=== PATIENT | female | born 1950 | race Caucasian/White ===

== ENCOUNTER 2019-05-07 07:43 | Inpatient (IN) | payer MEDICARE, MEDICAID ==
[~2019-05-07] VITALS: Ht 162.6 cm; Wt 68.5 kg
[2019-05-07] VITALS (41 sets, daily range): BP systolic 79–122; BP diastolic 55–82
[2019-05-07] MEDS ORDERED: ALBUTEROL/IPRATROPIUM 3 ML NEB ONE (07:46)
[2019-05-07] MEDS ORDERED: NS(*) 0.9% 1000 ML BAG 1,000 ML IV ONE ×3 (07:49→11:35)
[2019-05-07] MEDS ORDERED: MAGNESIUM SUL* 2 GM/50 ML IVPB 50 ML ONE (07:50)
[2019-05-07] MEDS ORDERED: ALBUTEROL/IPRATROPIUM 3 ML NEB NEB ONE (07:50)
[2019-05-07] MEDS ORDERED: MAGNESIUM SUL* 2 GM/50 ML IVPB 50 ML IVPB ONE (07:50)
[2019-05-07] MEDS ORDERED: ALBUTEROL/IPRATROPIUM 3 ML NEB NEB SCH (07:50)
[2019-05-07] MEDS ORDERED: KETAMINE HCL 500 MG/5 ML VIAL IVP ONE ×2 (07:54→08:01)
[2019-05-07 08:01] LABS: PLATELET COUNT, AUTOMATED 438 K/uL (150-450)
[2019-05-07] MEDS ORDERED: SUCCINYLCHOL CHL 200MG/10ML VL IVP ONE (08:02)
[2019-05-07 08:05] LABS: INR 0.93
--- NOTE | 2019-05-07 08:11 | ER Report ---
History and Physical Time Seen By MD: 07:45 HPI/ROS CHIEF COMPLAINT: COPD exacerbation, altered mental status HISTORY OF PRESENT ILLNESS: Patient is a 68-year-old female here with complaints of increased shortness of breath, history of COPD. EMS reports the patient was initially 66% on room air at time of initial evaluation. Patient was placed on BiPAP with minimal response. Patient was given DuoNeb through the BiPAP at time of arrival. Patient was given Solu-Medrol by EMS crew. REVIEW OF SYSTEMS: Unable to obtain due to patient's mental status Constitutional Vital Sign - Last 24 Hours 05/07/19 05/07/19 05/07/19 05/07/19 07:55 08:24 08:24 08:24 Temp 97.6 Pulse 93 Resp 16 Pulse Ox 97 O2 Delivery Mechanical Ventilator FiO2 100.0 100.0 05/07/19 08:31 Pulse 85 Resp 16 Physical Exam General Appearance: Diffuse retractions, altered mental status, minimally responsive Eyes: Pupils equal and round no pallor or injection. ENT, Mouth: Mucous membranes are moist. Respiratory: Diffuse wheezing in all quadrants, diminished breath sounds Cardiovascular: Regular rate and rhythm. Gastrointestinal: Abdomen is soft and non tender, no masses, bowel sounds normal. Neurological: Confused, minimally responsive, moving all extremities Skin: Warm and dry, no rashes. Musculoskeletal: Neck is supple non tender. Extremities are nontender, nonswollen and have full range of motion. DIFFERENTIAL DIAGNOSIS: After history and physical exam differential diagnosis was considered for shortness of breath including but not limited to pulmonary infectious process, COPD, asthma, pulmonary embolus and congestive heart f ailure. Medical Decision Making Data Points Result Diagram: 05/07/19 0745 05/07/19 0745 Laboratory Hematology Test 05/07/19 07:45 05/07/19 08:23 Red Blood Count 5.21 M/uL (4.17-5.56) Mean Corpuscular Volume 93.4 fL (80.0-96.0) Mean Corpuscular Hemoglobin 30.2 pg (26.0-33.0) Mean Corpuscular Hemoglobin Concent 32.3 g/dL (32.0-36.0) Red Cell Distribution Width 14.6 % (11.5-14.5) Mean Platelet Volume 8.2 fL (7.2-11.1) Neutrophils (%) (Auto) 39.8 % (39.4-72.5) Lymphocytes (%) (Auto) 43.9 % (17.6-49.6) Monocytes (%) (Auto) 3.8 % (4.1-12.4) Eosinophils (%) (Auto) 12.2 % (0.4-6.7) Basophils (%) (Auto) 0.3 % (0.3-1.4) Nucleated RBC Relative Count (auto) 0.0 /100WBC Neutrophils # (Auto) 7.8 K/uL (2.0-7.4) Lymphocytes # (Auto) 8.6 K/uL (1.3-3.6) Monocytes # (Auto) 0.8 K/uL (0.3-1.0) Eosinophils # (Auto) 2.4 K/uL (0.0-0.5) Basophils # (Auto) 0.1 K/uL (0.0-0.1) Nucleated RBC Absolute Count (auto) 0.01 K/uL Peripheral Blood Smear Yes Y/N Prothrombin Time 12.5 seconds (12.0-14.4) Prothromb Time International Ratio 0.93 Activated Partial Thromboplast Time 30 seconds (23-35) Sodium Level 143 mmol/L (137-145) Potassium Level 4.3 mmol/L (3.5-5.0) Chloride Level 106 mmol/L (98-107) Carbon Dioxide Level 24 mmol/L (22-31) Blood Urea Nitrogen 10 mg/dl (7-18) Creatinine 0.70 mg/dl (0.52-1.04) Glomerular Filtration Rate Calc > 60.0 Random Glucose 201 mg/dl (75-110) Calcium Level 9.2 mg/dl (8.4-10.2) Total Bilirubin 0.3 mg/dl (0.2-1.3) Aspartate Amino Transf (AST/SGOT) 20 U/L (0-35) Alanine Aminotransferase (ALT/SGPT) 21 U/L (0-56) Alkaline Phosphatase 132 U/L (0-126) B-Type Natriuretic Peptide 65 pg/ml (0-100) Total Protein 7.5 g/dl (6.3-8.2) Albumin 4.1 g/dl (3.5-5.0) Human Chorionic Gonadotropin, Qual Negative (NEGATIVE) Lactate 1.7 mmol/L (0.7-2.1) Chemistry Test 05/07/19 07:45 05/07/19 08:23 White Blood Count 19.6 k/uL (4.5-11.0) Red Blood Count 5.21 M/uL (4.17-5.56) Hemoglobin 15.7 g/dL (12.0-16.0) Hematocrit 48.6 % (34.0-47.0) Mean Corpuscular Volume 93.4 fL (80.0-96.0) Mean Corpuscular Hemoglobin 30.2 pg (26.0-33.0) Mean Corpuscular Hemoglobin Concent 32.3 g/dL (32.0-36.0) Red Cell Distribution Width 14.6 % (11.5-14.5) Platelet Count 438 K/uL (150-450) Mean Platelet Volume 8.2 fL (7.2-11.1) Neutrophils (%) (Auto) 39.8 % (39.4-72.5) Lymphocytes (%) (Auto) 43.9 % (17.6-49.6) Monocytes (%) (Auto) 3.8 % (4.1-12.4) Eosinophils (%) (Auto) 12.2 % (0.4-6.7) Basophils (%) (Auto) 0.3 % (0.3-1.4) Nucleated RBC Relative Count (auto) 0.0 /100WBC Neutrophils # (Auto) 7.8 K/uL (2.0-7.4) Lymphocytes # (Auto) 8.6 K/uL (1.3-3.6) Monocytes # (Auto) 0.8 K/uL (0.3-1.0) Eosinophils # (Auto) 2.4 K/uL (0.0-0.5) Basophils # (Auto) 0.1 K/uL (0.0-0.1) Nucleated RBC Absolute Count (auto) 0.01 K/uL Peripheral Blood Smear Yes Y/N Prothrombin Time 12.5 seconds (12.0-14.4) Prothromb Time International Ratio 0.93 Activated Partial Thromboplast Time 30 seconds (23-35) Glomerular Filtration Rate Calc > 60.0 Calcium Level 9.2 mg/dl (8.4-10.2) Total Bilirubin 0.3 mg/dl (0.2-1.3) Aspartate Amino Transf (AST/SGOT) 20 U/L (0-35) Alanine Aminotransferase (ALT/SGPT) 21 U/L (0-56) Alkaline Phosphatase 132 U/L (0-126) B-Type Natriuretic Peptide 65 pg/ml (0-100) Total Protein 7.5 g/dl (6.3-8.2) Albumin 4.1 g/dl (3.5-5.0) Human Chorionic Gonadotropin, Qual Negative (NEGATIVE) Lactate 1.7 mmol/L (0.7-2.1) Coagulation Test 05/07/19 07:45 Prothrombin Time 12.5 seconds Prothromb Time International Ratio 0.93 Activated Partial Thromboplast Time 30 seconds EKG/Imaging Imaging Please see radiology report for further details ED Course/Re-evaluation ED Course Patient is a 68-year-old female here with complaints of altered mental status, minimally responsive, history of COPD. Patient reportedly contacted EMS this morning for increasing dyspnea. Patient was given Solu-Medrol prior to arrival and was on BiPAP. Patient's mental status fail to improve in spite of doing nebs, BiPAP. Patient was given magnesium IV fluid bolus, continuous DuoNebs. Patient was intubated shortly after arrival after initial bolus of 75 mg of ketamine. Patient was then given 200 mg ketamine, 150 mg of succinylcholine and was intubated Using a 7.5 endotracheal tube with glydescope. Endotracheal tube was 24 at the teeth. I discussed the patient with Dr. Acosta who admitted the patient to the ICU for further treatment and care. Patient was given Levaquin after blood cultures and lactate were collected.. Procedure Endotracheal intubation: Patient was intubated due to respiratory failure, altered mental status in the setting of COPD. Patient was administered 200 mg of ketamine after initial bolus of 75 mg, 150 mg of succinylcholine. Patient was intubated using a 7.5 endotracheal tube, glydescope and the endotracheal tube was secured at 24 at the teeth. Bilateral breath sounds were auscultated post intubation, there was colorimetry change on capnography, patient was confirmed to have condensation in the tube. Chest x-ray confirmed tube placement. Patient was placed on post intubation sedation with ketamine infusion. Central access: Due to the patient's deteriorating condition, a central line was placed in the left IJ. Sterile procedure protocols were followed. Patient was prepped using chlorhexidine, sterile drape was placed. Usual central line protocols were followed, Seldinger technique was utilized to place a triple- lumen catheter in the left IJ. All ports flushed and had good return. Central l ine was secured using sutures. Patient tolerated the procedure well. Decision to Disposition Date: May 07, 2019 Decision to Disposition Time: 08:23 Depart Departure Latest Vital Signs Vital Signs Date Time Temp Pulse Resp B/P (MAP) Pulse Ox O2 Delivery O2 Flow Rate FiO2 05/07/19 08:31 85 16 05/07/19 08:24 100.0 05/07/19 08:24 97 Mechanical Ventilator 05/07/19 07:55 97.6 Impression: Primary Impression: Respiratory failure Additional Impression: COPD with acute exacerbation Condition: Critical Disposition: Admitted from ER Problem Qualifiers EDWARD AGUILLON DO May 07, 2019 08:11
--- NOTE | 2019-05-07 08:12 | RADIOLOGY IMAGING REPORT ---
FACILITY: [facility] PATIENT NAME: Cortney Camejo : 1950 MR: [id number] V: [id number] EXAM DATE: ORDERING PHYSICIAN: EDWARD AGUILLON TECHNOLOGIST: Location: [facility] Patient: Cortney Camejo : 1950 Visit/Account:[id number] Date of Sevice: 05/07/2019 CHEST SINGLE AP HISTORY: Respiratory distress COMPARISON: None FINDINGS: Cardiomediastinal contours: Normal Lungs and pleura: Mild blunting of the left costophrenic angle. No consolidation. No edema. No pne umothorax. Bones/soft tissues: Normal Other findings: None significant IMPRESSION: 1. Mild blunting of the left costophrenic angle which may represent small pleural effusion versus sc ar. Report Dictated By: Rafi Maria MD at 05/07/2019 8:06 AM Report E-Signed By: Rafi Maria MD at 05/07/2019 8:07 AM WSN:[email or web address]
[2019-05-07] MEDS ORDERED: ROCURONIUM BROM 10 MG/ML 10 ML IVP ONE (08:14)
[2019-05-07] MEDS ORDERED: KETAMINE HCL IV ONE (08:20)
[2019-05-07] MEDS ORDERED: LEVOFLOXACIN/D5W*500 MG/100 ML 100 ML IVPB ONE (08:20)
[2019-05-07] MEDS ORDERED: NS 0.9% IV ONE (08:20)
[2019-05-07] MEDS ORDERED: LEVOFLOXACIN/D5W 750 MG/150 ML 150 ML IVPB ONE (08:25)
[2019-05-07] MEDS ORDERED: PROPOFOL EMUL 10MG/ML 20 ML VL IV ONE (08:30)
--- NOTE | 2019-05-07 08:36 | RADIOLOGY IMAGING REPORT ---
FACILITY: [facility] PATIENT NAME: Cortney Camejo : 1950 MR: [id number] V: [id number] EXAM DATE: ORDERING PHYSICIAN: EDWARD AGUILLON TECHNOLOGIST: Location: [facility] Patient: Cortney Camejo : 1950 Visit/Account:[id number] Date of Sevice: 05/07/2019 CHEST SINGLE AP HISTORY: post intubation COMPARISON: 05/07/2019 FINDINGS: Cardiomediastinal contours: Normal Lungs and pleura: Stable mild blunting of the left costophrenic angle. Increasing left retrocardiac streaky opacity. No pneumothorax. No evidence of edema. Bones/soft tissues: Endotracheal tube tip at the aortic knob probably 3 cm above the brian. Nasogas tric tube courses into the stomach Other findings: None significant IMPRESSION: 1. New endotracheal tube and nasogastric tube in good position. 2. Stable mild blunting of the left costophrenic angle. Mild increasing streaky left retrocardiac o pacity which could be atelectasis, scar or developing infiltrate. Report Dictated By: Rafi Maria MD at 05/07/2019 8:28 AM Report E-Signed By: Rafi Maria MD at 05/07/2019 8:31 AM WSN:[email or web address]
[2019-05-07] MEDS ORDERED: KETAMINE HCL 200 MG/20 ML MDV IVP ONE (08:55)
[2019-05-07] MEDS ORDERED: NOREPINEPH BITAR 4 MG/4 ML AMP ONE (09:23)
[2019-05-07] MEDS ORDERED: INFLUENZA VIRUS VAC 0.5ML SYR IM ONLY ONE (09:45)
--- NOTE | 2019-05-07 09:59 | RADIOLOGY IMAGING REPORT ---
FACILITY: [facility] PATIENT NAME: Cortney Camejo : 1950 MR: [id number] V: [id number] EXAM DATE: ORDERING PHYSICIAN: EDWARD AGUILLON TECHNOLOGIST: Location: [facility] [place] Patient: Cortney Camejo : 1950 Visit/Account:[id number] Date of Sevice: 05/07/2019 CHEST SINGLE AP HISTORY: central line placement COMPARISON: 05/07/2019 FINDINGS: Cardiomediastinal contours: Normal Lungs and pleura: Stable mild blunting of the left costophrenic angle. Stable streaky left retrocard iac opacity. No pneumothorax. Bones/soft tissues: Normal Other findings: Endotracheal tube tip 3.5 cm above the brian. Nasogastric tube courses into the sto mach. New left internal jugular central line with its tip at the distal SVC. IMPRESSION: 1. New left internal jugular central line with its tip at the distal SVC. No postprocedural pneumot horax. 2. Endotracheal tube and nasogastric tube in good position. 3. Stable mild blunting of the left costophrenic angle. Stable streaky left retrocardiac airspace d isease. Report Dictated By: Rafi Maria MD at 05/07/2019 9:52 AM Report E-Signed By: Rafi Maria MD at 05/07/2019 9:53 AM WSN:[email or web address]
[2019-05-07] MEDS: DOXYCYCLINE HYCL 100 MG VIAL 100 MG in NS(*) 0.9% 250 ML BAG 250 ML IV SCH ×2 (10:13→22:08)
[2019-05-07] MEDS: NS(*) 0.9% 1000 ML BAG 1,000 ML IV PRN ×2 (10:13→21:24)
[2019-05-07] MEDS: MIDAZOLAM 50 MG/10 ML VIAL 100 MG in NS(*) 0.9% 100 ML BAG 80 ML IV PRN ×2 (10:27→21:23)
--- NOTE | 2019-05-07 11:16 | History & Physical ---
History of Present Illness Chief Complaint Shortness of breath History of Present Illness This patient presented to the emergency room in respiratory distress and was intubated on arrival. The daughter reports that she had been struggling with C OPD over the last several years, but refused to get treatment. The daughter does not live with her, and does not know the events of this morning. However, she does report that the patient had complained of increased shortness of breath yesterday. History Problems: (1) COPD (chronic obstructive pulmonary disease) Allergies: Coded Allergies: No Known Drug Allergies (Unverified , 05/07/19) Review of Systems All Systems Reviewed/Normal: Yes, Except as Noted Respiratory: Shortness of Breath Exam Vital Signs Vital Signs Date Time Temp Pulse Resp B/P (MAP) Pulse Ox O2 Delivery O2 Flow Rate FiO2 05/07/19 11:02 89 05/07/19 11:00 97.7 20 87/57 (67) 91 Mechanical Ventilator 50.0 Neuro: Other (Sedated.) Eyes: PERRLA Cardiovascular: Regular Rate and Rhythm Respiratory: Other (Bilateral breath sounds present.) GI: Abd Soft and Non-Tender Extremities: No Edema Integumentary: No Cyanosis Medical Decision Making Data Points Result Diagram: 05/07/19 0745 05/07/19 0745 Assessment and Plan Problems: (1) Acute respiratory failure Assessment & Plan: She did present with respiratory distress and was intubated on arrival. She is currently SIMV and is not overbreathing the ventilator. She is transitioning to Versed for sedation. A repeat blood gas has shown persist ent respiratory acidosis. We have increased her respiratory rate and will monitor this through the day. (2) COPD with acute exacerbation Status: Acute Assessment & Plan: She has been using albuterol at home, but has been reluctant to get any other treatment. Her chest x-ray does not show a definitive infiltrate. We are currently treating her with nebulizers, steroids, ceftriaxone, and azithromycin. (3) Hypotension Assessment & Plan: She is requiring a norepinephrine infusion. Lactate is normal. Venous Thromboembolism Antithrombotics Is Pt On Any Antithrombotics?: No Exam Sepsis Risk: No Definite Risk SANDY DIAZ DO May 07, 2019 11:16
[2019-05-07] MEDS: cefTRIAXone 2 GM VIAL IVP SCH (11:29)
[2019-05-07] MEDS ORDERED: FLUO-177 PO (11:42)
[2019-05-07] MEDS ORDERED: ALB18R INH (11:42)
[2019-05-07] MEDS ORDERED: TIO18R INH (11:42)
[2019-05-07] MEDS: methylPREDNIS SUCC 125 MG/2ML IVP SCH ×2 (11:47→17:43)
[2019-05-07] MEDS: NOREPINE BITAR* 4 MG/4 ML AMP 4 MG in D5W(*) 250 ML BAG 246 ML IV PRN (12:08)
[2019-05-07] MEDS: ALBUTEROL 2.5 MG/3 ML NEB NEB PRN (16:23)
[2019-05-07] MEDS: NS(*) 0.9% 500 ML BAG 500 ML IV PRN (16:34)
[2019-05-07] MEDS: MORPHINE 2 MG/ML SYR IVP PRN (18:27)
[2019-05-07] MEDS: ORAL SUCTION/CHLORHX/SWAB KIT MT SCH (21:00)
[2019-05-08] VITALS (85 sets, daily range): BP systolic 85–148; BP diastolic 57–115; Ht 162.6 cm; Wt 68.5 kg
[2019-05-08] MEDS: MORPHINE 2 MG/ML SYR IVP PRN ×7 (00:02→23:30)
[2019-05-08] MEDS: NOREPINE BITAR* 4 MG/4 ML AMP 4 MG in D5W(*) 250 ML BAG 246 ML IV PRN (00:03)
[2019-05-08] MEDS: methylPREDNIS SUCC 125 MG/2ML IVP SCH ×5 (00:03→23:30)
[2019-05-08 05:03] LABS: PLATELET COUNT, AUTOMATED 321 K/uL (150-450)
--- NOTE | 2019-05-08 06:40 | RADIOLOGY IMAGING REPORT ---
FACILITY: [facility] [place] PATIENT NAME: Cortney Camejo : 1950 MR: [id number] V: [id number] EXAM DATE: ORDERING PHYSICIAN: ASNDY DIAZ TECHNOLOGIST: Location: [facility] Patient: Cortney Camejo : 1950 Visit/Account:[id number] Date of Sevice: 05/08/2019 AP CHEST 05/08/2019 6:00 AM. INDICATION: Respiratory failure. RAD COMPARISON: Yesterday. FINDINGS: Support line and tubes are unchanged Lungs are overall well-expanded. Minimal streaky opacification at the bases. No pleural effusion or pneumothorax. Heart size is normal. IMPRESSION: Minimal basilar scarring/atelectasis. Report Dictated By: Pavel Mcdaniels MD at 05/08/2019 6:33 AM Report E-Signed By: Pavel Mcdaniels MD at 05/08/2019 6:35 AM WSN:[id number]
[2019-05-08] MEDS: NS(*) 0.9% 1000 ML BAG 1,000 ML IV PRN (07:33)
[2019-05-08] MEDS ORDERED: NS(*) 0.9% 1000 ML BAG 1,000 ML IV PRN (07:57)
[2019-05-08] MEDS: MIDAZOLAM 50 MG/10 ML VIAL 100 MG in NS(*) 0.9% 100 ML BAG 80 ML IV PRN (08:20)
[2019-05-08] MEDS: LORazepam 2 MG/ML VIAL IVP PRN ×2 (09:00→17:58)
[2019-05-08] MEDS: ENOXAPARIN 40 MG/0.4ML SYR SC SCH (09:05)
[2019-05-08] MEDS: ORAL SUCTION/CHLORHX/SWAB KIT MT SCH ×2 (09:05→22:37)
[2019-05-08] MEDS: ALBUTEROL 2.5 MG/3 ML NEB NEB PRN ×2 (09:33→11:40)
[2019-05-08] MEDS: DOXYCYCLINE HYCL 100 MG VIAL 100 MG in NS(*) 0.9% 250 ML BAG 250 ML IV SCH ×2 (10:20→22:34)
[2019-05-08] MEDS ORDERED: MIDAZOLAM 50 MG/10 ML VIAL 250 MG in NS(*) 0.9% 250 ML BAG 200 ML IV PRN (11:00)
[2019-05-08] MEDS: cefTRIAXone 2 GM VIAL IVP SCH (11:23)
--- NOTE | 2019-05-08 13:03 | Hospitalist Progress Note ---
Subjective Progress Notes Subjective 68F admitted for acute on chronic hypoxic respiratory failure. Remains intubated and sedated. Physical Exam Vital Signs Date Time Temp Pulse Resp B/P (MAP) Pulse Ox O2 Delivery O2 Flow Rate FiO2 05/08/19 12:30 61 20 105/69 (81) 94 Mechanical Ventilator 50.0 05/08/19 12:15 97.6 Intake and Output 05/08/19 07:01 Intake Total 6088 ml Output Total 1023 ml Balance 5065 ml IV Total 6088 ml Output Urine Total 820 ml Gastric Drainage Total 203 ml General Appearance: Afebrile Cardiovascular: Normal Rhythm & Peripheral Pulses Respiratory: Other (b/l wheezing, intubated and sedated) GI: Soft and Non-Tender : Normal (+ Hernandez) Extremities: Soft and Non Tender, Warm, Pulses, Perfused Integumentary: Skin Intact without Lesion / Mass Result Diagram: 05/08/1943805/08/19438 Assessment and Plan Problems: (1) Acute on chronic respiratory failure with hypoxia Assessment & Plan: She did present with respiratory distress and was intubated on arrival. She is currently SIMV and is not overbreathing the ventilator. On Versed for sedation with PRN Ativan and morphine. Blood gas shows improvement, she is requiring 0.5 FIO2 to maintain oxygenation. (2) COPD with acute exacerbation Status: Acute Assessment & Plan: She has been using albuterol at home, but has been reluctant to get any other treatment. Her chest x-ray does not show a definitive infiltrate. We are currently treating her with nebulizers, steroids, ceftriaxone, and azithromycin. She was prescribed oxygen per family, unclear how much and she was noncompliant. (3) Hypotension Assessment & Plan: She is requiring a norepinephrine infusion. Lactate is normal. Exam Sepsis Risk: No Definite Risk DAYO LOVE DO May 08, 2019 13:03
--- NOTE | 2019-05-08 13:20 | Antimicrobial Stewardship ---
Antimicrobial Stewardship Empiricly appropriate: Yes Comment Initially given Levaquin in the ED for COPD exacerbation. Currently on Doxycycline 100 mg IV bid and Ceftriaxone 2 gm IV daily. Approriate Cultures done: Yes (NGTD) Renal/Hepatic dosing: Yes Reviewed for Drug Interaction: Yes Monitored for Toxicities: Yes Comment WBC are trending downward. Patient remains intubated. IV to PO Opportunity: No Determine cumulative duration: 5-10 days ESMER POZO May 08, 2019 13:20
[2019-05-08] MEDS ORDERED: PROPOFOL(*)1000 MG/100 ML VIAL 100 ML ONE (17:40)
--- NOTE | 2019-05-08 18:33 | RADIOLOGY IMAGING REPORT ---
FACILITY: [facility] [place] PATIENT NAME: Cortney Camejo : 1950 MR: [id number] V: [id number] EXAM DATE: ORDERING PHYSICIAN: DAYO DIAZ TECHNOLOGIST: Location: [facility] Patient: Cortney Camejo : 1950 Visit/Account:[id number] Date of Sevice: 05/08/2019 CHEST SINGLE AP Indication: Intubation. Increased agitation.. Comparison: Exam done earlier in the morning at 6:10 AM. Findings: Cardiomediastinal silhouette and pulmonary vessels within normal limits. Endotracheal tubes in place and appears be in good position. Left IJ catheter is in place tip in SVC. Mild scarring or atelectasis in the medial right upper lobe and the left lower lobe similar to the pr evious exam. The previously radiopaque spring density is not seen overlying the right upper lobe. N o focal areas of consolidation. No pneumothorax or pleural effusion. Upper abdomen is unremarkable. No acute bony abnormality. IMPRESSION: 1. No acute cardiopulmonary process. 2. Support lines and tubes are in place and unchanged. Report Dictated By: Jerson Crow at 05/08/2019 6:25 PM Report E-Signed By: Jerson Crow at 05/08/2019 6:27 PM WSN:[id number]
[2019-05-08] MEDS ORDERED: FUROSEMIDE 40 MG/4 ML VIAL IVP ONE (20:45)
[2019-05-09] VITALS (89 sets, daily range): BP systolic 78–145; BP diastolic 48–112
[2019-05-09] MEDS: MORPHINE 2 MG/ML SYR IVP PRN ×4 (02:42→20:42)
[2019-05-09] MEDS: LORazepam 2 MG/ML VIAL IVP PRN ×2 (03:10→20:27)
[2019-05-09] MEDS ORDERED: PROPOFOL(*)1000 MG/100 ML VIAL 100 ML ONE (03:30)
[2019-05-09] MEDS ORDERED: ALBUTEROL/IPRATROPIUM 3 ML NEB NEB PRN (03:50)
[2019-05-09 05:22] LABS: PLATELET COUNT, AUTOMATED 308 K/uL (150-450)
[2019-05-09] MEDS: methylPREDNIS SUCC 125 MG/2ML IVP SCH ×3 (05:31→17:26)
--- NOTE | 2019-05-09 06:59 | RADIOLOGY IMAGING REPORT ---
FACILITY: [facility] [place] PATIENT NAME: Cortney Camejo : 1950 MR: [id number] V: [id number] EXAM DATE: ORDERING PHYSICIAN: DAYO DIAZ TECHNOLOGIST: Location: [facility] Patient: Cortney Camejo : 1950 Visit/Account:[id number] Date of Sevice: 05/09/2019 AP CHEST 05/09/2019 6:33 AM. INDICATION: intubated COMPARISON: Yesterday. FINDINGS: Left IJ central venous catheter and endotracheal tube are unchanged. Mild scarring in the right mid to upper lung and left base are similar to prior. No pleural effusion or pneumothorax. Lungs are ov erall well-expanded. Heart size is normal. IMPRESSION: No significant change. Report Dictated By: Pavel Mcdaniels MD at 05/09/2019 6:52 AM Report E-Signed By: Pavel Mcdaniels MD at 05/09/2019 6:55 AM WSN:[id number]
[2019-05-09] MEDS ORDERED: METH-318 PO (07:42)
[2019-05-09] MEDS ORDERED: NS(*) 0.9% 1000 ML BAG 1,000 ML IV PRN (07:50)
[2019-05-09] MEDS: ENOXAPARIN 40 MG/0.4ML SYR SC SCH (09:13)
[2019-05-09] MEDS: ORAL SUCTION/CHLORHX/SWAB KIT MT SCH ×2 (09:13→21:00)
[2019-05-09] MEDS ORDERED: OXYGENHOME INH (09:15)
[2019-05-09] MEDS: DOXYCYCLINE HYCL 100 MG VIAL 100 MG in NS(*) 0.9% 250 ML BAG 250 ML IV SCH ×2 (10:08→21:32)
[2019-05-09] MEDS: ALBUTEROL/IPRATROPIUM 3 ML NEB NEB SCH ×2 (11:43→18:03)
[2019-05-09] MEDS: cefTRIAXone 2 GM VIAL IVP SCH (11:48)
--- NOTE | 2019-05-09 12:44 | Medical Nutrition Therapy ---
Nutrition Anthropometrics Height (Inches): 64.00 Height (Calculated Centimeters: 162.732678 Weight (Pounds): 141 Weight (Calculated Kilograms): 64.325 Star Nutrition Score: Adequate Star Nutrition Risk Score: 13 Dietary Referral Nutrition Risk Factors: Nutrition Risk Comment: Physical Findings Physical Appearance: Skin Appearance Skin Appearance: Edema Edema Location Modifier: Both Edema Location: Hand Type of Edema: Degree of Edema: 1+ Gastrointestinal Symptoms GI Symtoms: Tube Present: OG Bowel Sounds: Recent Bowel Pattern: Stool Characteristics: Nutritional Diagnosis Nutritional Risk Acuity 1: Tube Feed Unstable Nutritional Risk Acuity 3: COPD Unstable Past Medical History: COPD Nutritional Acuity: 1-High Nutrition Diagnosis: Inadequate Food Intake Nutrition Etiology: Mechanical/Motor Issues Nutrition Problem/Etiology/Sym: Inadequate food intake as related to mechanical/motor issues as related to ARF and TF unstable. Energy Requirement: 1416 (M St jeor x 1.1 x 1.1) Protein Requirement: 96 (96-112 1.5-2.0 g protein/kg (Darren)) Fluid Requirement: 1416 (1L/kcal) Diet Type: Tube Feeding (TF) Nutritional Support Tube Feeding Supplement Streng: Full Recommended Enteral / Parental: Tube Feeding Recommended Tube Feeding Formu: Promote formula Tube Feeding Supplement Streng: Full Recommended Feeding Route: FT Placed Nasogastric Recommended Rate: 12mL/hr Recommended Goal Rate: 60mL/hr Recommended Duration: 24 Recommended Calories: 1440 Recommended Protein: 90 (96-112 g protein (1.5-2.0 g protein/kg per Darren)) Recommended Lipids Calories: 333 (333 kcal fat +259 kcal fat propofol) Total Recommended Calories: 748.8 Nutrition Monitoring & Eval RD Patient Assessment Time: [address] Assessment Type: RD Assessment Patient Nutrition Acuity: 1-High Follow Up Date: May 10, 2019 Nutritional Comment: Pt admitted with SOB. Dx with ARF and hypotension. Hx of COPD. Currently NPO day 1, and mechanically venilated-increasing energy needs. Medications include enoxaparin. Random glucose of 124-201. Total protein of 5.6 and albumin of 3.1 are decreased. AST of 46 is elevated. Monitor for progression of diet and adequate intake. -AKG 05/09: Pt begins TF diet. Pt needs are: 1416 kcal, 96-112g protein. Recommend Promote formula with goal rate of 60mL/hr to provided 1440kcal, 90g protein, 37g fat, and 187.2 g CHO. This will meet 102% of kcal needs and 93% of protein needs. Pt is also receiving 9.8mL propofol/hr providing an additional 259kcal of fat. This increases total kcal to 1675 kcal and fat to 65.7 g fat. During ARF, it is important to meet protein needs to preserve LBM, so RN and RD decided to keep formula at a rate which is closer to meeting protein needs, eventhough this increases kcal and fat intake. Will monitor for signs of excessive fat consumption. Pt is currently intubated and sedated. Pt is receiving enoxaparin. Pt has 1+ pitting edeam in both hands. Random glucose of 124 is slightly elevated. Troponin I of 0.306 is elevated. Will monitor for tolerance of TF. -LURDES ROCHE May 09, 2019 12:44
[2019-05-09] MEDS: ASPIRIN 81 MG CHEW FT SCH (15:36)
--- NOTE | 2019-05-09 15:38 | Hospitalist Progress Note ---
Subjective Progress Notes Subjective The patient remains intubated and sedated. Telemetry now showing deeply inverted T waves which is a change from previous. Physical Exam Vital Signs Date Time Temp Pulse Resp B/P (MAP) Pulse Ox O2 Delivery O2 Flow Rate FiO2 05/09/19 15:21 97 Mechanical Ventilator 60.0 05/09/19 15:19 68 05/09/19 15:15 98.4 13 109/65 (80) Intake and Output 05/09/19 07:01 Intake Total 1225.2 ml Output Total 2400 ml Balance -1174.8 ml Intake Oral 0 ml IV Total 1225.2 ml Output Urine Total 2200 ml Gastric Drainage Total 200 ml # Voids 0 # Bowel Movements 0 General Appearance: Other (Intubated, sedated.) Neuro: Other (Sedated.) Cardiovascular: Regular Rate and Rhythm Respiratory: Other (Some end expiratory wheezes throughout. No rales or rhonchi.) GI: Soft and Non-Tender Extremities: Warm, Perfused Integumentary: Skin Intact without Lesion / Mass Psych: Other (Sedated.) Result Diagram: 05/09/199 05/09/19458 Assessment and Plan Problems: (1) Acute on chronic respiratory failure with hypoxia Assessment & Plan: She did present with respiratory distress and was intubated on arrival. She is currently SIMV and is not overbreathing the ventilator. On Versed and propofol for sedation with PRN Ativan and morphine. Blood gas shows improvement, she is requiring 0.6 FIO2 to maintain oxygenation currently. Will continue to monitor closely and wean as she tolerates. (2) Type 2 myocardial infarction Status: Acute Assessment & Plan: EKG shows ST-T wave changes inferiorly and anterolaterally. Troponin performed on 5am lab and is elevated at 0.3. Repeat troponin at 1100 0.2. Discussed with cardiology. Recommend continuing enoxaprin at DVT prophylaxis doses and adding ASA 81mg daily. Recommend serial EKGs. Will repeat an EKG this evening. Repeat troponin in am. Once the patient recovers from her current illness, will need cardiac stress testing. (3) COPD with acute exacerbation Status: Acute Assessment & Plan: She has been using albuterol at home, but has been reluctant to get any other treatment. Her chest x-ray does not show a definitive infiltrate. We are currently treating her with mechanical ventilation, nebulizers, steroids, ceftriaxone, and azithromycin. She was prescribed oxygen per family, unclear how much and if she was noncompliant. (4) Hypotension Assessment & Plan: She is requiring a norepinephrine infusion when on sedation. Lactate is normal. Time Spent on Plan of Care: < 30 min Exam Sepsis Risk: No Definite Risk MEKHI BONILLA MD May 09, 2019 15:38
--- NOTE | 2019-05-09 16:27 | EKG ---
FACILITY: [facility] - [place] PATIENT NAME: RAMY MENDEZ : [id number] MR: [id number] V: [id number] EXAM DATE: ORDERING PHYSICIAN: MEKHI BONILLA TECHNOLOGIST: Test Reason : tele change- t wave inversion Blood Pressure : / mmHG Vent. Rate : 065 BPM Atrial Rate : 065 BPM P-R Int : 160 ms QRS Dur : 078 ms QT Int : 578 ms P-R-T Axes : 068 077 205 degrees QTc Int : 601 ms Normal sinus rhythm ST and T wave abnormality, consider inferior ischemia ST and T wave abnormality, consider anterolateral ischemia Prolonged QT Abnormal ECG No previous ECGs available Confirmed by MEKHI HARRIS ([id number]) on 05/09/2019 5:42:03 PM Referred By: Confirmed By:MEKHI HARRIS
[2019-05-09] MEDS ORDERED: FLUoxetine HCL 20 MG CAP PO ONE (17:30)
[2019-05-09] MEDS ORDERED: IV BOLUS 500 ML IVSOL IV ONE (18:25)
[2019-05-09] MEDS: PROPOFOL(*)1000 MG/100 ML VIAL 100 ML IV PRN (19:40)
[2019-05-09] MEDS: NOREPINE BITAR* 4 MG/4 ML AMP 4 MG in D5W(*) 250 ML BAG 246 ML IV PRN (19:40)
[2019-05-09] MEDS ORDERED: NS(*) 0.9% 500 ML BAG 500 ML IV ONE (22:55)
--- NOTE | 2019-05-09 23:40 | EKG ---
FACILITY: [facility] - [place] PATIENT NAME: RAMY MENDEZ : [id number] MR: [id number] V: [id number] EXAM DATE: ORDERING PHYSICIAN: MEKHI BONILLA TECHNOLOGIST: Test Reason : SERIAL EKG'S, ELEVATED TROPONIN Blood Pressure : / mmHG Vent. Rate : 063 BPM Atrial Rate : 063 BPM P-R Int : 152 ms QRS Dur : 084 ms QT Int : 570 ms P-R-T Axes : 070 080 205 degrees QTc Int : 583 ms Normal sinus rhythm T wave abnormality, consider inferior ischemia T wave abnormality, consider anterolateral ischemia Prolonged QT Abnormal ECG When compared with ECG of 09-MAY-2019 08:12, No significant change was found Confirmed by MEKHI HARRIS ([id number]) on 05/10/2019 6:23:26 AM Referred By: Confirmed By:MEKHI HARRIS
[2019-05-10] VITALS (71 sets, daily range): BP systolic 90–171; BP diastolic 49–81
[2019-05-10] MEDS: ALBUTEROL/IPRATROPIUM 3 ML NEB NEB SCH ×5 (00:09→23:26)
[2019-05-10] MEDS: NS(*) 0.9% 1000 ML BAG 1,000 ML IV PRN ×3 (00:16→21:37)
[2019-05-10] MEDS: methylPREDNIS SUCC 125 MG/2ML IVP SCH ×4 (00:16→17:29)
[2019-05-10] MEDS: PROPOFOL(*)1000 MG/100 ML VIAL 100 ML IV PRN ×3 (04:14→22:43)
[2019-05-10] MEDS: MORPHINE 2 MG/ML SYR IVP PRN ×5 (04:34→22:49)
[2019-05-10 05:10] LABS: PLATELET COUNT, AUTOMATED 221 K/uL (150-450)
--- NOTE | 2019-05-10 07:26 | RADIOLOGY IMAGING REPORT ---
FACILITY: [facility] PATIENT NAME: Cortney Camejo : 1950 MR: [id number] V: [id number] EXAM DATE: ORDERING PHYSICIAN: MEKHI BONILLA TECHNOLOGIST: Location: [facility] - [place] Patient: Cortney Camejo : 1950 Visit/Account:[id number] Date of Sevice: 05/10/2019 AP CHEST 05/10/2019 6:00 AM. INDICATION: on vent COMPARISON: Yesterday. FINDINGS: Left IJ central venous catheter and endotracheal tube are unchanged. Esophagogastric appears appropr iately positioned. The most proximal sidehole appears to be beyond the GE junction. Mild scarring i n the right mid to upper lung and left base similar to prior. No pleural effusion or pneumothorax. Lungs are overall well-expanded. Heart size is normal. IMPRESSION: No significant change. Report Dictated By: Pavel Mcdaniels MD at 05/10/2019 7:18 AM Report E-Signed By: Pavel Mcdaniels MD at 05/10/2019 7:20 AM WSN:[id number]
[2019-05-10] MEDS: ENOXAPARIN 40 MG/0.4ML SYR SC SCH (08:35)
[2019-05-10] MEDS: ORAL SUCTION/CHLORHX/SWAB KIT MT SCH ×2 (08:35→21:36)
[2019-05-10] MEDS: ASPIRIN 81 MG CHEW FT SCH (08:35)
--- NOTE | 2019-05-10 08:42 | Hospitalist Progress Note ---
Subjective Progress Notes Subjective This patient was admitted for COPD and respiratory failure. She had no acute changes overnight. Patient Complains of: Cardiovascular: No: Chest Pain Respiratory: No: Shortness of Breath Physical Exam Vital Signs Date Time Temp Pulse Resp B/P (MAP) Pulse Ox O2 Delivery O2 Flow Rate FiO2 05/10/19 08:00 93 Mechanical Ventilator 50.0 05/10/19 07:56 75 05/10/19 07:45 98.4 25 99/55 (70) Intake and Output 05/10/19 07:01 Intake Total 3863.1 ml Output Total 650 ml Balance 3213.1 ml IV Total 3004.1 ml Tube Feeding 579 ml Tube Irrigant 280 ml Output Urine Total 650 ml Neuro: Other (Sedated.) Eyes: PERRLA Cardiovascular: Regular Rate and Rhythm Respiratory: Clear to Auscultation Extremities: No Edema Integumentary: No Cyanosis Result Diagram: 05/10/1944905/10/19449 Assessment and Plan Problems: (1) Acute on chronic respiratory failure with hypoxia Assessment & Plan: She did present with respiratory distress and was intubated on arrival. She is currently tolerating CPAP trials. On Versed and propofol for sedation with PRN Ativan and morphine. We will continue with CPAP through today and consider extubation tomorrow. (2) Type 2 myocardial infarction Status: Acute Assessment & Plan: She did develop EKG changes inferiorly and anterolaterally. Her troponin also increased, but is now trending back down. This was discussed with cardiology, and they recommended continuing enoxaprin at DVT prophylaxis doses and adding ASA 81mg daily. (3) COPD with acute exacerbation Status: Acute Assessment & Plan: She has been using albuterol at home, but has been reluctant to get any other treatment. Her chest x-ray does not show a definitive infiltrate. We are currently treating her with mechanical ventilation, nebulizers, steroids, ceftriaxone, and doxycycline. She was prescribed oxygen per family, unclear how much and if she was noncompliant. (4) Hypotension Assessment & Plan: She is requiring a norepinephrine infusion when on sedation. Lactate is normal. Exam Sepsis Risk: No Definite Risk SANDY DIAZ DO May 10, 2019 08:42
[2019-05-10] MEDS ORDERED: FLUoxetine HCL 20 MG CAP PO SCH (09:00)
[2019-05-10] MEDS: DOXYCYCLINE HYCL 100 MG VIAL 100 MG in NS(*) 0.9% 250 ML BAG 250 ML IV SCH ×2 (09:16→21:36)
[2019-05-10] MEDS: cefTRIAXone 2 GM VIAL IVP SCH (10:41)
[2019-05-10] MEDS ORDERED: FUROSEMIDE 20 MG/2 ML VIAL IVP ONE (11:40)
--- NOTE | 2019-05-10 13:23 | Medical Nutrition Therapy ---
Nutrition Anthropometrics Height (Inches): 64.00 Height (Calculated Centimeters: 162.812520 Weight (Pounds): 148 Weight (Calculated Kilograms): 67.160 BMI: 25.4 Star Nutrition Score: Adequate Star Nutrition Risk Score: 13 Dietary Referral Nutrition Risk Factors: Nutrition Risk Comment: Nutritional Diagnosis Nutritional Risk Acuity 1: Tube Feed Unstable Nutritional Risk Acuity 3: COPD Unstable Past Medical History: COPD Nutritional Acuity: 1-High Nutrition Diagnosis: Inadequate Food Intake Nutrition Etiology: Mechanical/Motor Issues Nutrition Problem/Etiology/Sym: Inadequate food intake as related to mechanical/motor issues as related to ARF and TF unstable. Energy Requirement: 1416 (M St jeor x 1.1 x 1.1) Protein Requirement: 96 (96-112 1.5-2.0 g protein/kg (Darren)) Fluid Requirement: 1416 (1L/kcal) Diet Type: Tube Feeding (TF) Nutrition Intervention: Nutrition support, Incr diet as tolerated Nutritional Support Current Enteral / Parental: Tube Feeding Current Tube Feeding Formula C: Promote Tube Feeding Supplement Streng: Full Feeding Route: FT Placed Nasogastric Rate: 60ml/hr Current Duration: 24 Current Calories: 1440 Current Protein: 90 Current Lipids Calories: 259 (from propofol at 9.8mls/hr) Total Current Calories: 1699 Recommended Rate: 12mL/hr Recommended Goal Rate: 60mL/hr Nutrition Monitoring & Eval Nutritional Goals Comment: TF will meet nutr need until oral intake can meet needs. RD Patient Assessment Time: [address] Assessment Type: RD Re-Assessment Patient Nutrition Acuity: 1-High Follow Up Date: May 12, 2019 Nutritional Comment: Pt admitted with SOB. Dx with ARF and hypotension. Hx of COPD. Currently NPO day 1, and mechanically venilated-increasing energy needs. Medications include enoxaparin. Random glucose of 124-201. Total protein of 5.6 and albumin of 3.1 are decreased. AST of 46 is elevated. Monitor for progression of diet and adequate intake. -AKG 05/09: Pt begins TF diet. Pt needs are: 1416 kcal, 96-112g protein. Recommend Promote formula with goal rate of 60mL/hr to provided 1440kcal, 90g protein, 37g fat, and 187.2 g CHO. This will meet 102% of kcal needs and 93% of protein needs. Pt is also receiving 9.8mL propofol/hr providing an additional 259kcal of fat. This increases total kcal to 1675 kcal and fat to 65.7 g fat. During ARF, it is important to meet protein needs to preserve LBM, so RN and RD decided to keep formula at a rate which is closer to meeting protein needs, eventhough this increases kcal and fat intake. Will monitor for signs of excessive fat consumption. Pt is currently intubated and sedated. Pt is receiving enoxaparin. Pt has 1+ pitting edeam in both hands. Random glucose of 124 is slightly elevated. Troponin I of 0.306 is elevated. Will monitor for tolerance of TF. -AKG 05/10 Pt recieving Promote at 60ml/hr plus propofol at 9.8mls/hr. Pt tolerating TF well with minimal residuals. With propofol, current TF is meeting 94% est protein and 120% est kcal needs. Alb cont to decline and is currently 2.8. Pt cont 1+ edema to hands and hips. Wt up 4#. Will cont to monitor. EVE HODGE May 10, 2019 13:23
[2019-05-11] VITALS (41 sets, daily range): BP systolic 121–163; BP diastolic 66–95
[2019-05-11] MEDS: methylPREDNIS SUCC 125 MG/2ML IVP SCH ×5 (00:19→23:23)
[2019-05-11] MEDS: MORPHINE 2 MG/ML SYR IVP PRN ×2 (03:34→05:31)
[2019-05-11] MEDS: PROPOFOL(*)1000 MG/100 ML VIAL 100 ML IV PRN (04:50)
[2019-05-11] MEDS: ALBUTEROL/IPRATROPIUM 3 ML NEB NEB SCH ×4 (05:09→22:23)
[2019-05-11 05:16] LABS: PLATELET COUNT, AUTOMATED 212 K/uL (150-450)
--- NOTE | 2019-05-11 06:07 | EKG ---
FACILITY: [facility] PATIENT NAME: RAMY MENDEZ : [id number] MR: [id number] V: [id number] EXAM DATE: ORDERING PHYSICIAN: SANDY DIAZ TECHNOLOGIST: DYLAN Test Reason : AM EKG Blood Pressure : / mmHG Vent. Rate : 070 BPM Atrial Rate : 070 BPM P-R Int : 132 ms QRS Dur : 084 ms QT Int : 494 ms P-R-T Axes : 062 060 201 degrees QTc Int : 533 ms Normal sinus rhythm Low voltage QRS ST and T wave abnormality, consider inferolateral ischemia Prolonged QT Abnormal ECG When compared with ECG of 09-MAY-2019 17:57, No significant change was found Confirmed by SANDY DIAZ ([id number]) on 05/11/2019 6:25:48 AM Referred By: Confirmed By:SANDY DIAZ
--- NOTE | 2019-05-11 07:19 | RADIOLOGY IMAGING REPORT ---
FACILITY: [facility] - [place] PATIENT NAME: Cortney Camejo : 1950 MR: [id number] V: [id number] EXAM DATE: ORDERING PHYSICIAN: SANDY DIAZ TECHNOLOGIST: Location: [facility] - [place] Patient: Cortney Camejo : 1950 Visit/Account:[id number] Date of Sevice: 05/11/2019 AP CHEST 05/11/2019 6:00 AM. INDICATION: COPD, ventilated. COMPARISON: Yesterday. FINDINGS: Support line and tubes appear appropriately positioned. Lungs are overall well-expanded with minimal basilar scarring/atelectasis. No definite pleural effusion or pneumothorax. Heart size is normal. IMPRESSION: Minimal basilar scarring/atelectasis. Report Dictated By: Pavel Mcdaniels MD at 05/11/2019 7:10 AM Report E-Signed By: Pavel Mcdaniels MD at 05/11/2019 7:13 AM WSN:[id number]
[2019-05-11] MEDS ORDERED: FUROSEMIDE 20 MG/2 ML VIAL IVP ONE (07:30)
[2019-05-11] MEDS ORDERED: FUROSEMIDE 40 MG/4 ML VIAL IVP ONE (07:40)
[2019-05-11] MEDS: ASPIRIN 81 MG CHEW FT SCH (08:11)
[2019-05-11] MEDS: ORAL SUCTION/CHLORHX/SWAB KIT MT SCH (08:11)
[2019-05-11] MEDS: ENOXAPARIN 40 MG/0.4ML SYR SC SCH (08:11)
--- NOTE | 2019-05-11 08:24 | Hospitalist Progress Note ---
Subjective Progress Notes Subjective The patient did well on the ventilator overnight. She did get morphine for the CXR at about 0530. Tolerating TF. Physical Exam Vital Signs Date Time Temp Pulse Resp B/P (MAP) Pulse Ox O2 Delivery O2 Flow Rate FiO2 05/11/19 07:28 40.0 05/11/19 06:30 98.8 65 8 121/66 (84) 91 Mechanical Ventilator Intake and Output 05/11/19 07:01 Intake Total 5359 ml Output Total 1610 ml Balance 3749 ml IV Total 3509 ml Tube Feeding 1530 ml Tube Irrigant 320 ml Output Urine Total 1610 ml General Appearance: Other (Sedated and intubated) Eyes: PERRLA ENT: Moist Mucous Membranes Cardiovascular: Regular Rate and Rhythm Respiratory: Other (Course BS throughout) GI: Other (Soft, non-distended) Extremities: Warm, Perfused, Edema (1+ pitting in feet and hands) Integumentary: No Jaundice, No Cyanosis Result Diagram: 05/11/1945505/11/19455 Assessment and Plan Problems: (1) Acute on chronic respiratory failure with hypoxia Assessment & Plan: She did present with respiratory distress and was intubated on arrival. She tolerated CPAP trials, yesterday. On propofol for sedation with PRN Ativan (last dose on 05/09) and morphine (last dose at 05). Minimal secretions from ET tube. On SIMV 10 (breathing 12-13), Vt 550, PEEP 5, PS 10, FiO2 40%. Plateau pressure of 20. CXR and ABG are wnl. Will give a dose of Lasix and then start lightening sedation later this morning. Likely, she can be extubated. (2) Type 2 myocardial infarction Status: Acute Assessment & Plan: She did develop T inversion changes inferiorly and anterolaterally. Her troponin also increased, but is now trending back down. This was discussed with cardiology, and they recommended continuing enoxaparin at DVT prophylaxis doses and adding ASA 81mg daily. Echo showed an EF of 55- 60%, apex hypokinesis. (3) COPD with acute exacerbation Status: Acute Assessment & Plan: She has been using albuterol at home, but has been reluctant to get any other treatment. Her chest x-ray does not show a definitive infiltrate. We are currently treating her with mechanical ventilation, nebulizers, steroids, ceftriaxone, and doxycycline. She was prescribed oxygen per family, unclear how much and if she was noncompliant. (4) Hypotension Assessment & Plan: She is requiring a norepinephrine infusion when on sedation. Now of Levophed. Lactate is normal. (5) Elevated LFTs Status: Acute Assessment & Plan: Likely, secondary to ceftriaxone. Will follow. Exam Sepsis Risk: No Definite Risk ARRON MUSA MD May 11, 2019 08:24
[2019-05-11] MEDS: DOXYCYCLINE HYCL 100 MG VIAL 100 MG in NS(*) 0.9% 250 ML BAG 250 ML IV SCH ×2 (09:16→21:34)
[2019-05-11] MEDS: cefTRIAXone 2 GM VIAL IVP SCH (10:53)
[2019-05-11] MEDS: NS(*) 0.9% 1000 ML BAG 1,000 ML IV PRN (10:54)
[2019-05-11] MEDS: ACETAMINOPHEN(*)1000 MG/100 ML 100 ML IVPB PRN ×2 (14:33→22:49)
--- NOTE | 2019-05-11 16:03 | Medical Nutrition Therapy ---
Nutrition Anthropometrics Height (Inches): 64.00 Height (Calculated Centimeters: 162.792224 Weight (Pounds): 153 Weight (Calculated Kilograms): 69.541 BMI: 25.4 Star Nutrition Score: Adequate Star Nutrition Risk Score: 14 Dietary Referral Nutrition Risk Factors: Nutrition Risk Comment: Physical Findings Physical Appearance: Skin Appearance Skin Appearance: Edema Edema Location Modifier: Both Edema Location: generalized Type of Edema: Degree of Edema: 1+ Gastrointestinal Symptoms GI Symtoms: Tube Present: OG Bowel Sounds: Recent Bowel Pattern: Stool Characteristics: Nutritional Diagnosis Nutritional Risk Acuity 1: Tube Feed Unstable Nutritional Risk Acuity 3: COPD Unstable Past Medical History: COPD Nutritional Acuity: 1-High Nutrition Diagnosis: Inadequate Food Intake Nutrition Etiology: Mechanical/Motor Issues Nutrition Problem/Etiology/Sym: Inadequate food intake as related to mechanical/motor issues as related to ARF and TF unstable. Energy Requirement: 1416 (M St jeor x 1.1 x 1.1) Protein Requirement: 96 (96-112 1.5-2.0 g protein/kg (Darren)) Fluid Requirement: 1416 (1L/kcal) Diet Type: Tube Feeding (TF) Nutrition Intervention: Nutrition support, Incr diet as tolerated Nutritional Support Current Tube Feeding Formula C: Promote Recommended Rate: 12mL/hr Recommended Goal Rate: 60mL/hr Nutrition Monitoring & Eval RD Patient Assessment Time: [address] Assessment Type: RD Re-Assessment Patient Nutrition Acuity: 1-High Follow Up Date: May 14, 2019 Nutritional Comment: Pt admitted with SOB. Dx with ARF and hypotension. Hx of COPD. Currently NPO day 1, and mechanically venilated-increasing energy needs. Medications include enoxaparin. Random glucose of 124-201. Total protein of 5.6 and albumin of 3.1 are decreased. AST of 46 is elevated. Monitor for progression of diet and adequate intake. -AKG 05/09: Pt begins TF diet. Pt needs are: 1416 kcal, 96-112g protein. Recommend Promote formula with goal rate of 60mL/hr to provided 1440kcal, 90g protein, 37g fat, and 187.2 g CHO. This will meet 102% of kcal needs and 93% of protein needs. Pt is also receiving 9.8mL propofol/hr providing an additional 259kcal of fat. This increases total kcal to 1675 kcal and fat to 65.7 g fat. During ARF, it is important to meet protein needs to preserve LBM, so RN and RD decided to keep formula at a rate which is closer to meeting protein needs, eventhough this increases kcal and fat intake. Will monitor for signs of excessive fat consumption. Pt is currently intubated and sedated. Pt is receiving enoxaparin. Pt has 1+ pitting edeam in both hands. Random glucose of 124 is slightly elevated. Troponin I of 0.306 is elevated. Will monitor for tolerance of TF. -AKG 05/10 Pt recieving Promote at 60ml/hr plus propofol at 9.8mls/hr. Pt tolerating TF well with minimal residuals. With propofol, current TF is meeting 94% est protein and 120% est kcal needs. Alb cont to decline and is currently 2.8. Pt cont 1+ edema to hands and hips. Wt up 4#. Will cont to monitor. BK 05/11/19-Pt extubated today. Currently NPO. Will continue to monitor swallowing/diet advancement.ARIANE VILLEDA May 11, 2019 15:58
[2019-05-11] MEDS: PROMETHAZINE 25 MG/ML 1 ML AMP IVP PRN (22:04)
[2019-05-12] VITALS (12 sets, daily range): BP systolic 134–159; BP diastolic 77–90
[2019-05-12] MEDS: methylPREDNIS SUCC 125 MG/2ML IVP SCH ×3 (05:24→19:04)
[2019-05-12 05:43] LABS: PLATELET COUNT, AUTOMATED 209 K/uL (150-450)
[2019-05-12] MEDS: ALBUTEROL/IPRATROPIUM 3 ML NEB NEB SCH ×4 (06:00→22:14)
--- NOTE | 2019-05-12 06:00 | EKG ---
FACILITY: [facility] PATIENT NAME: RAMY MENDEZ : [id number] MR: [id number] V: [id number] EXAM DATE: ORDERING PHYSICIAN: ARRON MUSA TECHNOLOGIST: DYLAN Macias Reason : AM EKG Blood Pressure : / mmHG Vent. Rate : 065 BPM Atrial Rate : 065 BPM P-R Int : 142 ms QRS Dur : 088 ms QT Int : 496 ms P-R-T Axes : 073 068 189 degrees QTc Int : 515 ms Normal sinus rhythm Cannot rule out Anterior infarct , age undetermined ST and T wave abnormality, consider inferolateral ischemia Prolonged QT Abnormal ECG When compared with ECG of 11-MAY-2019 05:18, No significant change was found Confirmed by SANDY DIAZ ([id number]) on 05/12/2019 9:45:53 AM Referred By: Confirmed By:SANDY DIAZ
[2019-05-12] MEDS: ENOXAPARIN 40 MG/0.4ML SYR SC SCH (08:47)
[2019-05-12] MEDS: KCL (*) 20 MEQ/100 ML PREMIX 100 ML IV SCH ×2 (08:47→12:13)
[2019-05-12] MEDS: ASPIRIN 81 MG CHEW FT SCH (08:47)
[2019-05-12] MEDS: NS(*) 0.9% 1000 ML BAG 1,000 ML IV PRN ×2 (08:57→14:00)
[2019-05-12] MEDS: ASPIRIN 81 MG CHEW PO SCH (09:00)
--- NOTE | 2019-05-12 09:19 | Hospitalist Progress Note ---
Subjective Progress Notes Subjective This patient was admitted for respirator failure. She was extubated yesterday. Patient Complains of: Cardiovascular: No: Chest Pain Respiratory: No: Shortness of Breath Physical Exam Vital Signs Date Time Temp Pulse Resp B/P (MAP) Pulse Ox O2 Delivery O2 Flow Rate FiO2 05/12/19 06:00 66 10 151/89 (109) 94 High-Flow Nasal Cannula 6.0 05/12/19 03:00 98.4 05/11/19 10:00 40.0 Intake and Output 05/12/19 07:01 Intake Total 1715 ml Output Total 4700 ml Balance -2985 ml Intake Oral 90 ml IV Total 1565 ml Tube Irrigant 60 ml Output Urine Total 4550 ml Emesis 150 ml # Bowel Movements 3 Cardiovascular: Regular Rate and Rhythm Respiratory: Clear to Auscultation Result Diagram: 05/12/1951105/12/19511 Assessment and Plan Problems: (1) Acute on chronic respiratory failure with hypoxia Assessment & Plan: She did present with respiratory distress and was intubated on arrival. She was extubated yesterday. (2) Type 2 myocardial infarction Status: Acute Assessment & Plan: She did develop T inversion changes inferiorly and anterolaterally. Her troponin also increased, but is now trending back down. This was discussed with cardiology, and they recommended continuing enoxaparin at DVT prophylaxis doses and adding ASA 81mg daily. Echo showed an EF of 55- 60%, apex hypokinesis. (3) COPD with acute exacerbation Status: Acute Assessment & Plan: She has been using albuterol at home, but has been reluctant to get any other treatment. Her chest x-ray does not show a definitive infiltrate. We are currently treating her with mechanical nebulizers, steroids, ceftriaxone, and doxycycline. She was prescribed oxygen per family, unclear how much and if she was noncompliant. (4) Hypotension Assessment & Plan: She has now weaned from vasopressor support. (5) Elevated LFTs Status: Acute Assessment & Plan: Likely, secondary to ceftriaxone. Will follow. Exam Sepsis Risk: No Definite Risk SANDY DIAZ DO May 12, 2019 09:19
[2019-05-12] MEDS: cefTRIAXone 2 GM VIAL IVP SCH (10:18)
[2019-05-12] MEDS: DOXYCYCLINE HYCL 100 MG VIAL 100 MG in NS(*) 0.9% 250 ML BAG 250 ML IV SCH ×2 (10:25→21:45)
--- NOTE | 2019-05-12 11:38 | NUR ---
Physical Therapy Impression Upon arrival, Pt was sitting on commode. Pt was reporting nausea/ lightheadedness. Pt O2 was not on at arrival, SpO2 measured at 81%. O2 restored on 8L and SpO2 benji to >89%. BP WNL but decreasing by 11mmHg systolic. Pt performed 2x stand pivot transfers with ModAx2 and use of RW. Pt transfered from commode to wheelchair and from wheelchair to bed. Unable to assess further ambulation due to Pt conditon. PT staff assisted with [facility] Pt was left with nursing staff. Rec pending progress. Physical Therapy Goals 1. Adolfo with bed mobility 2. Adolfo with sit to stand transfers 3. Adolfo with ambulation of 150 ft with use of least restrictive device 4. Adolfo ability to ascend/descend 2 stairs Patient's Goals
[2019-05-12] MEDS: PROMETHAZINE 25 MG/ML 1 ML AMP IVP PRN ×2 (12:07→20:34)
--- NOTE | 2019-05-12 13:50 | NUR ---
Occupational Therapy Impression Subjective evaluation completed. Pt fatigued and preparing to nap. Prior to admission, pt was living alone and (I) with ADLs. She was walking 4-5 blocks a day with no assistive device. Pt does not own a car and reports daughter assists with IADLs as needed. Will follow and address ADLs/functional mobility in tomorrow's tx session. Occupational Therapy Goals 1) Pt will be SBA UB/LB dressing. 2) Pt will be SBA grooming/hygiene. 3) Pt will be SBA toilet task. 4) Pt will be educated on appropriate AE needs. Patient's Goal
--- NOTE | 2019-05-12 16:03 | SLP BEDSIDE SWALLOW EVALUATION ---
SPEECH THERAPY ASSESSMENT Bedside dysphagia evaluation Physician: Dr. Parth Acosta DO Clinician: Arline Rivera MS, CCC-TECHNICAL SERVICE REPRESENTATIVE Type of Assessment: Bedside Dysphagia Evaluation Patient: Cortney Camejo : [birth year] Evaluation Date: 05/12/2019 BACKGROUND The patient is a 68-year-old female admitted to [facility] on 05/07/2019 with respiratory distress. She was intubated upon arrival to the ED, extubated on 05/11/19. An ST consult was requested for completion of a bedside swallow evaluation to analyze readiness for initiation of PO intake s/p extubation. Primary Medical Diagnosis: Acute on chronic respiratory failure with hypoxia Pmhx: COPD, hypotension, type 2 myocardial infarction, elevated LFTs Pain Scale (0-10): 0 LOC / Participation: Alert and cooperative. Follows instructions: yes, somewhat slow to respond likely in response to residual effects of recent sedation with generalized WET PROCESS TECHNICIAN depression Orientation: A&O. Functional Communication Deficits impact swallow function/safety, or response to therapy: No DYSPHAGIA Sialorrhea: No Xerostomia: No Hygiene: WFL Supplemental Oxygen Use: Yes. 6.0 liters via high flow NC. 02 sats maintained above 92 throughout assessment. COPD Dx: Yes. Pain with Swallow: Denies. Pt seen at the bedside for clinical swallowing assessment. The pt was alert and participatory, but demonstrated mild response delay when provided with verbal instructions or presented with open ended questions. Suspect this will resolve with increased duration s/p sedation. Vocal quality clear. Wet, nonproductive cough noted prior to initiation of PO trials. Oromotor exam was unremarkable w/ adequate strength, coordination, and ROM of all oral musculature. Structures intact. Pt reported funny sensation in oral cavity. This was alleviated with completion of oral care. Administered PO trials of thin liquids via cup sip and straw, soft solids, and regular solids. Overall, oral and pharyngeal phases of swallow are WFL for normal PO intake from a clinical standpoint. Pt w/ adequate bolus formation, complete clearance of material from oral cavity, no overt indicators of aspiration across PO trials. Pt is appropriate for return to a regular diet and thin liquids with adherence to general precautions as outlined below. Results and recommendations were discussed with the pt, RN. ST ASSESSMENT SUMMARY Aspiration Risk: Mild. Negative prognostic indicators include compromised respiratory status with elevated O2 needs and recent extubation. . MARY: Level 6, WFL/modified independence. Speech Therapy Need Swallow status is WFL from a clinical standpoint. Further skilled interventions are not warranted for dysphagia. RECOMMENDATIONS 1. Diet: Regular, thin liquids. 2. Medications: Whole, one at a time, ok with thin liquids. 3. Compensatory Techniques: regular oral hygiene, upright positioning during PO intake, slow rate of intake. 4. Supervision with meals/snacks: Provide assistance for feeding as needed. Generalized WET PROCESS TECHNICIAN depression s/p recent sedation appears to be negatively impacting speed and accuracy for self-feeding tasks. Anticipate this will quickly resolve. Thank you for this referral. Arline Rivera M.S., [facility]-TECHNICAL SERVICE REPRESENTATIVE Speech Therapist [*] KATE
--- NOTE | 2019-05-12 17:16 | NUR ---
Swallow status is WFL from a clinical standpoint. Further skilled interventions are not warranted for dysphagia. RECOMMENDATIONS 1. Diet: Regular, thin liquids. 2. Medications: Whole, one at a time, ok with thin liquids. 3. Compensatory Techniques: regular oral hygiene, upright positioning during PO intake, slow rate of intake. 4. Supervision with meals/snacks: Provide assistance for feeding as needed. Generalized PROCESS ENG depression s/p recent sedation appears to be negatively impacting speed and accuracy for self-feeding tasks. Anticipate this will quickly resolve.
[2019-05-12] MEDS: ACETAMINOPHEN(*)1000 MG/100 ML 100 ML IVPB PRN (21:44)
[2019-05-13] MEDS: methylPREDNIS SUCC 125 MG/2ML IVP SCH ×2 (00:14→06:04)
[2019-05-13 03:20] VITALS: BP 133/70
[2019-05-13] MEDS: ALBUTEROL/IPRATROPIUM 3 ML NEB NEB SCH ×4 (05:35→23:26)
[2019-05-13] MEDS: NS(*) 0.9% 1000 ML BAG 1,000 ML IV PRN (06:04)
[2019-05-13 07:01] VITALS: BP 140/80
--- NOTE | 2019-05-13 09:08 | NUR ---
Physical Therapy Impression PT/OT co-treat with time split for billing purposes. Pt demonstrated significant improvements in tolerance to ambulation. SBA provided for sit<>supine transfers. Pt able to transfer sit<>stand with CGAx2 and use of RW. Pt ambulated from EOB to doorway with CGAx2 and RW. 6L of O2 used for ambulation. Pt left in bed with O2, all needs met, and call light in reach. Pt would benefit from continued skilled PT care to improve endurance to previous functional baseline. Rec HH or short term rehab, pending progress. Physical Therapy Goals 1. Adolfo with bed mobility 2. Adolfo with sit to stand transfers 3. Adolfo with ambulation of 150 ft with use of least restrictive device 4. Adolfo ability to ascend/descend 2 stairs Patient's Goals
--- NOTE | 2019-05-13 09:34 | NUR ---
Occupational Therapy Impression SBA bed mobility in/out. CGAx2 ambulation with RW. Assist to thread brief over catheter. CGA managing clothing over hips. VSS throughout on 6L O2. Cues and increased assist for management of lines. Pt may benefit from HH or short-term rehab pending progression. Occupational Therapy Goals 1) Pt will be SBA UB/LB dressing. 2) Pt will be SBA grooming/hygiene. 3) Pt will be SBA toilet task. 4) Pt will be educated on appropriate AE needs. Patient's Goal
[2019-05-13] MEDS: ASPIRIN 81 MG CHEW PO SCH (09:36)
[2019-05-13] MEDS: ENOXAPARIN 40 MG/0.4ML SYR SC SCH (09:37)
[2019-05-13] MEDS: DOXYCYCLINE HYCL 100 MG VIAL 100 MG in NS(*) 0.9% 250 ML BAG 250 ML IV SCH ×2 (09:39→21:32)
--- NOTE | 2019-05-13 09:45 | NUR ---
This Physical Therapist or Carburetor Rebuilder was present for the entire physical therapy session directing the services, making the skilled judgement, and was not engaged in treating another patient or doing another task at the same time as the treatment session. Addendum: 05/13/19 at 0945 by CAROLINE PAPPAS PT Amended: Links added.
--- NOTE | 2019-05-13 11:14 | NUR ---
This Physical Therapist or P D Driver was present for the entire physical therapy session directing the services, making the skilled judgement, and was not engaged in treating another patient or doing another task at the same time as the treatment session. Addendum: 05/13/19 at 1114 by FILIPPO SHELBY PT Amended: Links added.
[2019-05-13 11:26] VITALS: BP 154/84
[2019-05-13] MEDS: CALCIUM CARBONATE 500 MG CHEW PO PRN (12:11)
[2019-05-13] MEDS: cefTRIAXone 2 GM VIAL IVP SCH (12:12)
--- NOTE | 2019-05-13 13:06 | EKG ---
FACILITY: [facility] [place] PATIENT NAME: RAMY MENDEZ : [id number] MR: [id number] V: [id number] EXAM DATE: ORDERING PHYSICIAN: KARISHMA BONILLA TECHNOLOGIST: DEIRDRE Test Reason : PROLONGED QT Blood Pressure : / mmHG Vent. Rate : 066 BPM Atrial Rate : 066 BPM P-R Int : 128 ms QRS Dur : 078 ms QT Int : 488 ms P-R-T Axes : 047 043 166 degrees QTc Int : [address] and T wave abnormality, consider anterolateral ischemia Prolonged QT Abnormal ECG Artifact in limb leads - repeat if needed Confirmed by KARISHMA BONILLA ([id number]) on 05/13/2019 8:07:00 PM Referred By: CHAD Confirmed By:KARISHMA BONILLA
--- NOTE | 2019-05-13 13:21 | Hospitalist Progress Note ---
Subjective Progress Notes Subjective She reports feeling weak, but overall improved. Physical Exam Vital Signs Date Time Temp Pulse Resp B/P (MAP) Pulse Ox O2 Delivery O2 Flow Rate FiO2 05/13/19 11:50 92 High-Flow Nasal Cannula 4.0 05/13/19 11:50 63 18 05/13/19 11:26 98.1 154/84 (107) 05/11/19 10:00 40.0 Intake and Output 05/13/19 07:01 Intake Total 3665 ml Output Total 3100 ml Balance 565 ml Intake Oral 1090 ml IV Total 2575 ml Output Urine Total 3100 ml # Bowel Movements 3 General Appearance: Alert, Awake Cardiovascular: Regular Rate and Rhythm Respiratory: Other (fairly clear with rare expiratory wheeze) GI: Soft and Non-Tender Extremities: Warm, Perfused Result Diagram: 05/12/19 0512 05/13/19 0557 Assessment and Plan Problems: (1) COPD with acute exacerbation Status: Acute Assessment & Plan: She has been using albuterol at home, but has been reluctant to get any other treatment. Her chest x-ray did not show a definitive infiltrate. She was initially intubated/mechanically ventilated. She has shown clinical improvements, but is still quite weak. She is currently on nebulizers, steroids, ceftriaxone, and doxycycline. She was previously prescribed oxygen (per her family, but unclear if she was noncompliant). (2) Acute on chronic respiratory failure with hypoxia Assessment & Plan: She did present with respiratory distress and was intubated on arrival. She was extubated 05/11/19. (3) Type 2 myocardial infarction Status: Acute Assessment & Plan: She did develop T inversion changes inferiorly and ant erolaterally. Her troponin also increased, but is now trending back down. This was discussed with cardiology and they recommended continuing enoxaparin at DVT prophylaxis doses and adding ASA 81mg daily. Echocardiogram showed an EF of 55- 60%, apex hypokinesis. (4) Elevated LFTs Status: Acute Assessment & Plan: Possibly secondary to antibiotics. It is isolated AST and ALT elevation, so may be related to myocardial injury. Will follow. Exam Sepsis Risk: No Definite Risk KARISHMA BONILLA MD May 13, 2019 13:21
[2019-05-13 15:06] VITALS: BP 138/78
[2019-05-13 19:11] VITALS: BP 146/71
[2019-05-13] MEDS ORDERED: methylPREDNIS SUCC 125 MG/2ML IVP SCH (21:00)
[2019-05-13 23:54] VITALS: BP 128/64
[2019-05-14 02:35] VITALS: BP 150/80
[2019-05-14] MEDS: NS(*) 0.9% 500 ML BAG 500 ML IV PRN (05:34)
[2019-05-14] MEDS: ALBUTEROL/IPRATROPIUM 3 ML NEB NEB SCH ×4 (06:00→23:51)
[2019-05-14 06:36] LABS: PLATELET COUNT, AUTOMATED 220 K/uL (150-450)
[2019-05-14 07:05] VITALS: BP 137/76
[2019-05-14] MEDS: ENOXAPARIN 40 MG/0.4ML SYR SC SCH (08:17)
[2019-05-14] MEDS: ASPIRIN 81 MG CHEW PO SCH (08:17)
[2019-05-14] MEDS: DOXYCYCLINE HYCL 100 MG VIAL 100 MG in NS(*) 0.9% 250 ML BAG 250 ML IV SCH (09:28)
[2019-05-14] MEDS: CALCIUM CARBONATE 500 MG CHEW PO PRN (09:31)
--- NOTE | 2019-05-14 09:39 | Medical Nutrition Therapy ---
Nutrition Anthropometrics Height (Inches): 64.00 Height (Calculated Centimeters: 162.273579 Weight (Pounds): 147 Weight (Calculated Kilograms): 66.678 BMI: 25.4 Star Nutrition Score: Adequate Star Nutrition Risk Score: 16 Dietary Referral Nutrition Risk Factors: Nutrition Risk Comment: Nutritional Diagnosis Nutritional Risk Acuity 3: Fair Appetite, COPD Unstable Past Medical History: COPD Nutritional Acuity: 3-Mild Energy Requirement: 1416 (M St jeor x 1.1 x 1.1) Protein Requirement: 96 (96-112 1.5-2.0 g protein/kg (Darren)) Fluid Requirement: 1416 (1L/kcal) Diet Type: Diet as Tolerated MY/REG Nutrition Intervention: Cont diet as ordered, Encourage intake, Nutrition support, Incr diet as tolerated Additional Diet Restrictions: ENCOURAGE HIGH POTTASIUM FOODS Diet Comment To RSA: OFFER NUTR SUPPLEMENT Nutrition Monitoring & Eval Nutrition Goals: Eat 75-100% Meal Nutrition Follow-Up: Fair Intake RD Patient Assessment Time: [address] Assessment Type: RD Re-Assessment Patient Nutrition Acuity: 3-Mild Follow Up Date: Apr 19, 2019 Nutritional Comment: Pt admitted with SOB. Dx with ARF and hypotension. Hx of COPD. Currently NPO day 1, and mechanically venilated-increasing energy needs. Medications include enoxaparin. Random glucose of 124-201. Total protein of 5.6 and albumin of 3.1 are decreased. AST of 46 is elevated. Monitor for progression of diet and adequate intake. -AKG 05/09: Pt begins TF diet. Pt needs are: 1416 kcal, 96-112g protein. Recommend Promote formula with goal rate of 60mL/hr to provided 1440kcal, 90g protein, 37g fat, and 187.2 g CHO. This will meet 102% of kcal needs and 93% of protein needs. Pt is also receiving 9.8mL propofol/hr providing an additional 259kcal of fat. This increases total kcal to 1675 kcal and fat to 65.7 g fat. During ARF, it is important to meet protein needs to preserve LBM, so RN and RD decided to keep formula at a rate which is closer to meeting protein needs, eventhough this increases kcal and fat intake. Will monitor for signs of excessive fat consumption. Pt is currently intubated and sedated. Pt is receiving enoxaparin. Pt has 1+ pitting edeam in both hands. Random glucose of 124 is slightly elevated. Troponin I of 0.306 is elevated. Will monitor for tolerance of TF. -AKG 05/10 Pt recieving Promote at 60ml/hr plus propofol at 9.8mls/hr. Pt tolerating TF well with minimal residuals. With propofol, current TF is meeting 94% est protein and 120% est kcal needs. Alb cont to decline and is currently 2.8. Pt cont 1+ edema to hands and hips. Wt up 4#. Will cont to monitor. MEGHANA 05/11/19-Pt extubated today. Currently NPO. Will continue to monitor swallowing/diet advancement.AMALIA 05/14 TF d/akiko. Diet advanced to regular. Pt 75% of meals. SPL eval indicated no swalowing issues. Alb cont low at 2.6, K+ low at 3.2. Will offer nutr supplement to increase kcal and protein and encourage high K+ foods. Will cont to monitor and encourage intake. EVE HODGE May 14, 2019 09:39
[2019-05-14] MEDS ORDERED: MECLIZINE HCL 25 MG TAB PO PRN (10:20)
--- NOTE | 2019-05-14 10:23 | EKG ---
FACILITY: [facility] - [place] PATIENT NAME: RAMY MENDEZ : [id number] MR: [id number] V: [id number] EXAM DATE: ORDERING PHYSICIAN: SANDY DIAZ TECHNOLOGIST: DYLAN Test Reason : AM EKG Blood Pressure : / mmHG Vent. Rate : 061 BPM Atrial Rate : 061 BPM P-R Int : 136 ms QRS Dur : 082 ms QT Int : 498 ms P-R-T Axes : 081 088 162 degrees QTc Int : 501 ms Normal sinus rhythm Low voltage QRS Cannot rule out Anterior infarct (cited on or before 12-MAY-2019) T wave abnormality, consider lateral ischemia QTc prolonged When compared with ECG of 12-MAY-2019 05:43, No significant change was found Confirmed by ARRON MUSA ([id number]) on 05/14/2019 12:44:53 PM Referred By: Confirmed By:ARRON MUSA
[2019-05-14] MEDS: predniSONE 20 MG TAB PO SCH (10:40)
[2019-05-14] MEDS: POTASSIUM CHL 20 MEQ TABCR PO SCH ×5 (10:40→17:21)
[2019-05-14 11:39] VITALS: BP 156/82
--- NOTE | 2019-05-14 12:09 | Hospitalist Progress Note ---
Subjective Progress Notes Subjective She feels weak, but notes improvement from therapy with ambulation today. She also has complaints of dizziness. Physical Exam Vital Signs Date Time Temp Pulse Resp B/P (MAP) Pulse Ox O2 Delivery O2 Flow Rate FiO2 05/14/19 11:52 60 05/14/19 11:47 96 High-Flow Nasal Cannula 3.0 05/14/19 11:47 16 05/14/19 11:39 97.6 156/82 (106) 05/11/19 10:00 40.0 Intake and Output 05/14/19 01:01 Intake Total 2484 ml Output Total 1950 ml Balance 534 ml Intake Oral 960 ml IV Total 1524 ml Output Urine Total 1950 ml # Voids 4 # Bowel Movements 1 General Appearance: Alert, Awake, No Acute Distress, Afebrile Neuro: No Gross deficits Cardiovascular: Regular Rate and Rhythm Respiratory: No Respiratory Distress, Clear to Auscultation, Other (no wheezing heard) GI: Soft and Non-Tender Psych: Appropriate Mood & Affect Result Diagram: 05/14/1952505/14/19525 Assessment and Plan Problems: (1) COPD with acute exacerbation Status: Acute Assessment & Plan: She has been using albuterol at home, but has been reluctant to get any other treatment. Her chest x-ray did not show a definitive infiltrate. She was initially intubated/mechanically ventilated. She has shown clinical improvements, but is still quite weak. She was placed on nebulizers, steroids, ceftriaxone, and doxycycline. She was previously prescribed oxygen (she admits to be being noncompliant). Antibiotics completed after one week treatment. IV steroids transitioned today to Prednisone. Therapy recommending h ome with home health when medically ready. (2) Acute on chronic respiratory failure with hypoxia Assessment & Plan: She did present with respiratory distress and was intubated on arrival. She was extubated 05/11/19. (3) Type 2 myocardial infarction Status: Acute Assessment & Plan: She did develop T inversion changes inferiorly and anterolaterally. Her troponin also increased, but is now trending back down. This was discussed with cardiology and they recommended continuing enoxaparin at DVT prophylaxis doses and adding ASA 81mg daily. Echocardiogram showed an EF of 55-60%, apex hypokinesis. (4) Elevated LFTs Status: Acute Assessment & Plan: Possibly secondary to antibiotics. It is isolated AST and ALT elevation, so may be related to myocardial injury. Will follow. (5) Depression Status: Chronic Assessment & Plan: She is on chronic treatment with Fluoxetine. This has been held secondary to prolonged QT. EKG to be checked again today. (6) Dizziness Status: Acute Assessment & Plan: Reports has been dizzy and had nausea at random times throughout admission. She cannot pinpoint certain movements that exacerbate symptoms. Will try meclizine for dizziness. Exam Sepsis Risk: No Definite Risk HARIS GATES DENTAL LABORATORY TECHNICIAN APPRENTICE May 14, 2019 12:09
--- NOTE | 2019-05-14 12:35 | EKG ---
FACILITY: [facility] PATIENT NAME: RAMY MENDEZ : [id number] MR: [id number] V: [id number] EXAM DATE: ORDERING PHYSICIAN: HARIS GATES TECHNOLOGIST: LEAH Test Reason : PROLONGED QT Blood Pressure : / mmHG Vent. Rate : 060 BPM Atrial Rate : 060 BPM P-R Int : 134 ms QRS Dur : 080 ms QT Int : 476 ms P-R-T Axes : 045 049 151 degrees QTc Int : 476 ms Normal sinus rhythm ST and T wave abnormality, consider lateral ischemia and anterior ischemia When compared with ECG of 13-MAY-2019 12:01, QTc has normalized Confirmed by ARRON MUSA ([id number]) on 05/14/2019 12:49:20 PM Referred By: KODY Confirmed By:ARRON MUSA
--- NOTE | 2019-05-14 12:45 | NUR ---
Physical Therapy Impression Pt demonstrated signifcantly improved tolerance to ambulation. Pt ambulated 125 ft with CGAx1, RW, and 4L of O2. Pt with no complaints during ambulation. Stairs not attempted, but Pt demonstrated ability to step on scale without difficulty.Pt performed sit<>stand transfers with SBA. Pt left sitting in reclining chair with all needs met, O2 on, and call light in reach. Pt would benefit from further skilled Pt care to educate on safe stair negotiation and to continue to improve endurance. Recommendations pending progress, may require HH. Physical Therapy Goals 1. Adolfo with bed mobility 2. Adolfo with sit to stand transfers 3. Adolfo with ambulation of 150 ft with use of least restrictive device 4. Adolfo ability to ascend/descend 2 stairs Patient's Goals
--- NOTE | 2019-05-14 12:45 | NUR ---
This Physical Therapist or Cluster Bore Operator was present for the entire physical therapy session directing the services, making the skilled judgement, and was not engaged in treating another patient or doing another task at the same time as the treatment session. Addendum: 05/14/19 at 1245 by CAROLINE PAPPAS PT Amended: Links added.
--- NOTE | 2019-05-14 13:15 | NUR ---
Occupational Therapy Impression Independent bed mobility in/out. Independent LB dressing. SBA ambulation x100ft with RW. SpO2 WNL on 4L. Pt declined further ADLs-completed prior to OT visit. Discussed AE recommendations (RW) and energy conservation strategies. Will provide handouts. Recommend HH OT upon discharge. Occupational Therapy Goals 1) Pt will be SBA UB/LB dressing. 2) Pt will be SBA grooming/hygiene. 3) Pt will be SBA toilet task. 4) Pt will be educated on appropriate AE needs. Patient's Goal
[2019-05-14 14:48] VITALS: BP 130/70
[2019-05-14] MEDS: FLUoxetine HCL 20 MG CAP PO SCH (14:48)
[2019-05-14 18:54] VITALS: BP 130/72
[2019-05-15 03:09] VITALS: BP 141/74
[2019-05-15] MEDS: ALBUTEROL/IPRATROPIUM 3 ML NEB NEB SCH ×3 (06:02→17:36)
[2019-05-15 07:26] VITALS: BP 128/72
--- NOTE | 2019-05-15 09:00 | NUR ---
Physical Therapy Impression Patient instructed in gait training with FWW on 3L of oxygen. Patient ambulated ~200 feet with one seated rest break with cuing to stay close to walker and to stand tall.Patient was shown how to perform platform step. Patient ascended and descended one platform step with FWW with CGA. Patient demonstrated understanding. Patient was fatigued and did not want to go to the gym to perform stair training and felt she would be safe at home with her son to help. Physical Therapy Goals 1. Adolfo with bed mobility 2. Adolfo with sit to stand transfers 3. Adolfo with ambulation of 150 ft with use of least restrictive device 4. Adolfo ability to ascend/descend 2 stairs Patient's Goals
[2019-05-15] MEDS: FLUoxetine HCL 20 MG CAP PO SCH (09:32)
[2019-05-15] MEDS: predniSONE 20 MG TAB PO SCH (09:33)
[2019-05-15] MEDS: ENOXAPARIN 40 MG/0.4ML SYR SC SCH (09:33)
[2019-05-15] MEDS: ASPIRIN 81 MG CHEW PO SCH (09:33)
[2019-05-15] MEDS: POTASSIUM CHL 20 MEQ TABCR PO SCH (09:35)
[2019-05-15] MEDS: CALCIUM CARBONATE 500 MG CHEW PO PRN ×2 (09:38→19:58)
[2019-05-15] MEDS: BUDESO/FORMOT 160/4.5 MCG 6 GM INH SCH ×2 (09:55→17:36)
--- NOTE | 2019-05-15 11:04 | Hospitalist Progress Note ---
Subjective Progress Notes Subjective The patient is feeling better. Physical Exam Vital Signs Date Time Temp Pulse Resp B/P (MAP) Pulse Ox O2 Delivery O2 Flow Rate FiO2 05/15/19 08:56 69 05/15/19 07:26 98.0 18 128/72 (90) 96 05/15/19 07:26 High-Flow Nasal Cannula 3.0 05/11/19 10:00 40.0 Intake and Output 05/15/19 07:01 Intake Total 1663 ml Balance 1663 ml Intake Oral 1240 ml IV Total 423 ml # Voids 5 # Bowel Movements 1 General Appearance: Alert, Awake, No Acute Distress Eyes: PERRLA Cardiovascular: Regular Rate and Rhythm Respiratory: Other (Some mild scattered expiratory wheezes.) GI: Soft and Non-Tender Extremities: Warm, Perfused Psych: Appropriate Mood & Affect Result Diagram: 05/14/1952505/14/19525 Assessment and Plan Problems: (1) COPD with acute exacerbation Status: Acute Assessment & Plan: She has been using albuterol at home, but has been reluctant to get any other treatment. Her chest x-ray did not show a definitive infiltrate. She was initially intubated/mechanically ventilated. She has shown clinical improvements, but is still quite weak. She was placed on nebulizers, steroids, ceftriaxone, and doxycycline. She was previously prescribed oxygen (she admits to be being noncompliant). Antibiotics completed after one week treatment. IV steroids transitioned today to Prednisone. Therapy recommending home with home health when medically ready. She will need ongoing treatment of her COPD at home. Will start Symbicort here (preferred by her insurance) and arrange for her to have a nebulizer at discharge to use at home. (2) Generalized weakness Status: Acute Assessment & Plan: The patient has received PT/OT and is improving. She is set up to get Home Health through [facility] for nursing and rehab. Will need to do a Face to Face at discharge. (3) Acute on chronic respiratory failure with hypoxia Assessment & Plan: She did present with respiratory distress and was intubated on arrival. She was extubated 05/11/19. (4) Type 2 myocardial infarction Status: Acute Assessment & Plan: She did develop T inversion changes inferiorly and anterolaterally. Her troponin also increased, but is now trending back down. This was discussed with cardiology and they recommended continuing enoxaparin at DVT prophylaxis doses and adding ASA 81mg daily. Echocardiogram showed an EF of 55-60%, apex hypokinesis. She will need to have a stress test done as an outpatient as recommended by cardiology, once she recovers from her current illness. (5) Elevated LFTs Status: Acute Assessment & Plan: Possibly secondary to antibiotics. It is isolated AST and ALT elevation, so may be related to myocardial injury. Will follow. (6) Depression Status: Chronic Assessment & Plan: She is on chronic treatment with fluoxetine. This has been held secondary to prolonged QT. EKG shows a normal QT interval today. Will restart fluoxetine. (7) Dizziness Status: Acute Assessment & Plan: Reports has been dizzy and had nausea at random times throughout admission. She cannot pinpoint certain movements that exacerbate symptoms. Will try meclizine for dizziness. Time Spent on Plan of Care: < 30 min Exam Sepsis Risk: No Definite Risk MEKHI BONILLA MD May 15, 2019 11:04
[2019-05-15 11:33] VITALS: BP 122/66
[2019-05-15] MEDS: POTASSIUM CHL 10 MEQ TABCR PO SCH ×2 (12:35→16:48)
--- NOTE | 2019-05-15 16:14 | EKG ---
FACILITY: [facility] - [place] PATIENT NAME: RAMY MENDEZ : [id number] MR: [id number] V: [id number] EXAM DATE: ORDERING PHYSICIAN: HARIS GATES TECHNOLOGIST: CORRINE Test Reason : PROLONGED QT Blood Pressure : / mmHG Vent. Rate : 056 BPM Atrial Rate : 056 BPM P-R Int : 130 ms QRS Dur : 074 ms QT Int : 490 ms P-R-T Axes : 045 038 144 degrees QTc Int : 472 ms Poor data quality, interpretation may be adversely affected No data recorded for lead V1 Sinus bradycardia T wave abnormality, consider lateral ischemia Prolonged QT Abnormal ECG When compared with ECG of 14-MAY-2019 12:02, T wave inversion more evident in Lateral leads Confirmed by MEKHI HARRIS ([id number]) on 05/16/2019 6:50:41 AM Referred By: Confirmed By:MEKHI HARRIS
--- NOTE | 2019-05-15 17:21 | Hospitalist Progress Note ---
Subjective Progress Notes Subjective The patient is feeling much better overall. Physical Exam Vital Signs Date Time Temp Pulse Resp B/P (MAP) Pulse Ox O2 Delivery O2 Flow Rate FiO2 05/15/19 12:40 64 16 05/15/19 12:30 90 Nasal Cannula 3.0 05/15/19 11:33 97.3 122/66 (84) 05/11/19 10:00 40.0 Intake and Output 05/15/19 07:01 Intake Total 1663 ml Balance 1663 ml Intake Oral 1240 ml IV Total 423 ml # Voids 5 # Bowel Movements 1 General Appearance: Alert, Awake, No Acute Distress Cardiovascular: Regular Rate and Rhythm Respiratory: Other (Some end-expiratory wheezes noted, mild.) GI: Soft and Non-Tender Extremities: Warm, Perfused Psych: Appropriate Mood & Affect Result Diagram: 05/14/1952505/14/19525 Assessment and Plan Problems: (1) COPD with acute exacerbation Status: Acute Assessment & Plan: She has been using albuterol at home, but has been reluctant to get any other treatment. Her chest x-ray did not show a definitive infiltrate. She was initially intubated/mechanically ventilated. She has shown clinical improvements, and her weakness has improved with PT/OT. She was placed on nebulizers, steroids, ceftriaxone, and doxycycline. She was previously prescribed oxygen (she admits to be being noncompliant). Antibiotics completed after one week treatment. IV steroids transitioned to Prednisone. Therapy recommending home with home health when medically ready. She will need ongoing treatment of her COPD at home. Will start Symbicort here (preferred by her insurance) and arrange for her to have a nebulizer at discharge to use at home. (2) Generalized weakness Status: Acute Assessment & Plan: The patient has received PT/OT and is improving. She is set up to get Home Health through [facility] for nursing and rehab. Will need to do a Face to Face at discharge. (3) Acute on chronic respiratory failure with hypoxia Assessment & Plan: She did present with respiratory distress and was intubated on arrival. She was extubated 05/11/19. (4) Type 2 myocardial infarction Status: Acute Assessment & Plan: She did develop T inversion changes inferiorly and anterolaterally. Her troponin also increased, but is now trending back down. This was discussed with cardiology and they recommended continuing enoxaparin at DVT prophylaxis doses and adding ASA 81mg daily. Echocardiogram showed an EF of 55-60%, apex hypokinesis. She will need to have a stress test done as an outpatient as recommended by cardiology, once she recovers from her current illness. (5) Elevated LFTs Status: Acute Assessment & Plan: Possibly secondary to antibiotics. It is isolated AST and ALT elevation, so may be related to myocardial injury. Will follow. (6) Depression Status: Chronic Assessment & Plan: She is on chronic treatment with fluoxetine. This has been held secondary to prolonged QT. EKG shows a normal QT interval today. Will restart fluoxetine. (7) Dizziness Status: Acute Assessment & Plan: Reports has been dizzy and had nausea at random times throughout admission. She cannot pinpoint certain movements that exacerbate symptoms. Will try meclizine for dizziness. Time Spent on Plan of Care: < 30 min Exam Sepsis Risk: No Definite Risk MEKHI BONILLA MD May 15, 2019 17:21
[2019-05-15 18:47] VITALS: BP 141/86
[2019-05-15 23:10] VITALS: BP 147/73
[2019-05-15 23:19] VITALS: BP 136/64
[2019-05-16] MEDS: ALBUTEROL/IPRATROPIUM 3 ML NEB NEB SCH ×3 (00:34→12:00)
[2019-05-16 05:22] VITALS: BP 141/73
[2019-05-16 05:56] LABS: PLATELET COUNT, AUTOMATED 209 K/uL (150-450)
[2019-05-16] MEDS: BUDESO/FORMOT 160/4.5 MCG 6 GM INH SCH (06:02)
[2019-05-16 08:35] VITALS: BP 120/58
[2019-05-16] MEDS ORDERED: predniSONE 10 MG TAB PO SCH (09:00)
[2019-05-16] MEDS: FLUoxetine HCL 20 MG CAP PO SCH (09:05)
[2019-05-16] MEDS: ENOXAPARIN 40 MG/0.4ML SYR SC SCH (09:06)
[2019-05-16] MEDS: ASPIRIN 81 MG CHEW PO SCH (09:06)
[2019-05-16] MEDS: POTASSIUM CHL 10 MEQ TABCR PO SCH ×2 (09:06→13:20)
[2019-05-16] MEDS: CALCIUM CARBONATE 500 MG CHEW PO PRN (09:06)
--- NOTE | 2019-05-16 09:53 | Hospitalist Depart ---
Discharge Summary Reason for Hosp/Final Diag: (1) COPD with acute exacerbation Status: Acute Hospital Course & Plan: The patient had been using albuterol at home prior to admission, but had been reluctant to get any other treatment. Her chest x-ray did not show a definitive infiltrate. She was initially intubated/mechanically ventilated and subsequently extubated. She improved clinically, and her weakness also improved with PT/OT. She was placed on nebulizers, steroids, ceftriaxone, and doxycycline. She was previously prescribed oxygen (she admits to be being noncompliant). Antibiotics completed after one week treatment. IV steroids transitioned to Prednisone with taper. Therapy recommending home with home hea lt when medically ready. She will need ongoing treatment of her COPD at home. Will start Symbicort here (preferred by her insurance) and arrange for her to have a nebulizer at discharge to use at home. (2) Generalized weakness Status: Acute Hospital Course & Plan: The patient has received PT/OT and is improving. She is set up to get Home Health through [facility] for nursing and rehab on discharge. Face to Face completed at discharge. (3) Acute on chronic respiratory failure with hypoxia Hospital Course & Plan: She did present with respiratory distress and was intubated on arrival. She was extubated 05/11/19. She continued to improve with treatments as noted above. (4) Type 2 myocardial infarction Status: Acute Hospital Course & Plan: She did develop T wave inversion changes inferiorly and anterolaterally while intubated. Her troponin also increased, but then trended back down. This was discussed with cardiology and they recommended continuing enoxaparin at DVT prophylaxis doses and adding ASA 81mg daily. Echocardiogram showed an EF of 55-60% with apex hypokinesis. She will need to have a stress test done as an outpatient as recommended by cardiology, once she recovers from her current illness. Methylphenidate (Ritalin) was discontinued. She did not receive it during her inpatient stay and was instructed not to restart it at home due to cardiac issues. (5) Elevated LFTs Status: Acute Hospital Course & Plan: Possibly secondary to antibiotics. It is isolated AST and ALT elevation, so may also be related to myocardial injury. Improving daily. (6) Depression Status: Chronic Hospital Course & Plan: She is on chronic treatment with fluoxetine. This was held secondary to prolonged QT. Her QT interval was improving at the time of discharge. (7) Dizziness Status: Acute Hospital Course & Plan: Reports has been dizzy and had nausea at random times throughout admission. She could not pinpoint certain movements that exacerbated symptoms. Meclizine was ordered for dizziness. Departure Weight (Pounds): 151 Weight (Ounces): 0.6 Result Diagram: 05/16/19 0505/16/19 05 Item Value Date Time Troponin I 0.306 ng/ml *H 05/09/19 0459 Troponin I 0.208 ng/ml *H 05/09/19 1110 Troponin I 0.104 ng/ml 05/10/19 0450 Total Bilirubin 0.7 mg/dl 05/16/19516 Aspartate Amino Transf (AST/SGOT) 21 U/L 05/16/19516 Alanine Aminotransferase (ALT/SGPT) 59 U/L H 05/16/19516 Alkaline Phosphatase 51 U/L 05/16/19516 Total Protein 4.7 g/dl L 05/16/19516 Albumin 2.5 g/dl L 05/16/19516 Blood cultures X 2 are no growth. Imaging Echo showed EF of 50-55% with hypokinesis of the apex. EKG FACILITY: [facility] PATIENT NAME: RAMY MENDEZ : [id number] MR: [id number] V: [id number] EXAM DATE: ORDERING PHYSICIAN: HARIS GATES TECHNOLOGIST: CORRINE Test Reason : PROLONGED QT Blood Pressure : / mmHG Vent. Rate : 056 BPM Atrial Rate : 056 BPM P-R Int : 130 ms QRS Dur : 074 ms QT Int : 490 ms P-R-T Axes : 045 038 144 degrees QTc Int : 472 ms Poor data quality, interpretation may be adversely affected No data recorded for lead V1 Sinus bradycardia T wave abnormality, consider lateral ischemia Prolonged QT Abnormal ECG When compared with ECG of 14-MAY-2019 12:02, T wave inversion more evident in Lateral leads Confirmed by MEKHI HARRIS ([id number]) on 05/16/2019 6:50:41 AM Referred By: Confirmed By:MEKHI HARRIS [id number] T: EDWIN/ Condition: Improved Discharge: Home, Home Health PT/OT Follow Up For: PT For Strengthening, OT For ADL's, PT Evaluation and Treat, OT Evaluation and Treat Home Health RN Follow Up For: Medication Management, Nursing Assessment Home Health DAT INSTRUCTOR Follow Up For: ADL Assistance Time Spent: < 30 min Discharge Instructions Home Meds Active Scripts Ipratropium/Albuterol Sulfate (IPRAT-ALBUT 0.5-3(2.5) MG/3 ML) 3 Ml Ampul.neb, 3 ML NEB TID, #270 UNITS 3 Refills Prov:MEKHI BONILLA MD 05/16/19 Budesonide/Formoterol Fumarate (SYMBICORT 160-4.5 MCG INHALER) 10.2 Gm Inh, 2 INH INH BIDR, #3 INHALER 3 Refills Prov:MEKHI BONILLA MD 05/16/19 Potassium Chloride (KLOR-CON 10) 10 Meq Tablet.er, 20 MEQ PO BID, #20 TAB Take with food. Prov:MEKHI BONILLA MD 05/16/19 Prednisone 10 Mg Tab (PREDNISONE 10 MG TAB) 10 Mg Tablet, 0 PO DIRECTED, #20 TAB 30mg po qd X 3 d, then 20mg po qd X 3d then 10mg po qd X 3 d, then 5mg (1/2 tab) po qd X 4 days, then stop. Prov:MEKHI BONILLA MD 05/16/19 Aspirin (Children's Aspirin) 81 Mg Tab.chew, 81 MG PO QDAY, #90 TAB.CHEW 3 Refills Prov:MEKHI BONILLA MD 05/16/19 Reported Medications Oxygen (OXYGEN) Inha, 2 L INH, L *DAUGHTER STATES PT WEARS O2 @ NOC. UNKNOWN AMOUNT - PT CURRENTLY UNABLE TO ANSWER QUESTIONS. 05/09/19 Fluoxetine Hcl (FLUOXETINE HCL) 20 Mg Capsule, 60 MG PO QDAY, CAPSULE 05/07/19 Discontinued Reported Medications Methylphenidate Hcl (METHYLPHENIDATE HCL) 10 Mg Tablet, 10 MG PO BID 05/09/19 Tiotropium Hydes (SPIRIVA) 18 Mcg/Cap Inh, 18 MCG INH DAILY, INH 05/07/19 Albuterol Sulfate (VENTOLIN HFA) 18 Gm Inh, 2 PUFF INH Q4D PRN for SHORTNESS OF BREATH, INH 05/07/19 Follow up Referrals: Family Practice - In Two Weeks with ADELINA Mcduffie Diet: Regular Activity: As Tolerated Special Instructions: 1. Follow up with Genoveva Carney as previously scheduled on May 25. 2. Continue to wear oxygen at 4L 24 hours a day. 3. Continue to use inhalers as prescribed. 4. You will need to have a cardiac stress test arranged through Genoveva Carney's office when you are feeling better. She may recommend cardiology consultation as well. 5. Continue on a daily baby aspirin (81mg) for your heart. 6. Stop the methylphenidate (Ritalin). This is a stimulant and may cause a heart attack. 7. Use the Symbicort inhaler everyday, twice a day. Do not use it as a "rescue inhaler" for worsening of your shortness of breath. Also use the albuterol/ipratropium bromide nebulizers regularly three times daily. Use the Proair inhaler as needed in between the Symbicort and nebulizer treatments if you need to for increased shortness of breath. Copies to: GENOVEVA CARNEY ; Venous Thromboembolism Antithrombotics Is Pt On Any Antithrombotics?: Yes [id number] Certification Face to Face Home Health Certification Patient's Primary Care Provider: Institutional Provider conducted the [id number] encounter. Electronic Undersigning Physician Certifies Home Health. I certify that the patient has been under my care and that I had a [id number] encounter that meets the physician [id number] encounter requirements with this patient. This patient is home-bound due to safety issues and continues to require assist ance with ADL's. I certify that based on my findings, that Nursing, Aides and the following Home Health services are medically necessary: PT and OT Medical Necessity: Nursing, Rehab Date Face to Face Conducted: May 16, 2019 MEKHI BONILLA MD May 16, 2019 09:53
[2019-05-16] MEDS ORDERED: ASPI-870 PO (09:56)
[2019-05-16] MEDS ORDERED: PRED-1 PO (09:58)
[2019-05-16] MEDS ORDERED: POTA-23 PO (10:01)
[2019-05-16] MEDS ORDERED: BUDE10.2 INH (10:02)
[2019-05-16] MEDS ORDERED: IPRA3AMP10 NEB (10:04)
== END 2019-05-16 14:20 | disposition home health service (06) | DRG 207 ==
LOC: ER 07:57 → EDBD 07:57 → ICU 08:46 → MED 05-12 11:40
PROVIDERS: ADMIT Family Medicine; ATTEND Family Medicine
PROC: 5A1955Z Respiratory Ventilation, Greater than 96 Consecutive Hours (ICD-10-PCS; principal; 2019-05-07)
PROC: 0BH17EZ Insertion of Endotracheal Airway into Trachea, Via Natural or Artificial Opening (ICD-10-PCS; 2019-05-07)
PROC: 02HV33Z Insertion of Infusion Device into Superior Vena Cava, Percutaneous Approach (ICD-10-PCS; 2019-05-07)
DX: J96.21 Acute and chronic respiratory failure with hypoxia (principal); I21.A1 Myocardial infarction type 2; J44.1 Chronic obstructive pulmonary disease with (acute) exacerbation; I45.81 Long QT syndrome; R53.1 Weakness; R79.89 Other specified abnormal findings of blood chemistry; T36.95XA Adverse effect of unspecified systemic antibiotic, initial encounter; T43.225A Adverse effect of selective serotonin reuptake inhibitors, initial encounter; F32.9 Major depressive disorder, single episode, unspecified; I95.9 Hypotension, unspecified
CPT/HCPCS: 36415; 36416; 36600; 71045; 81001; 82040; 82247; 82310; 82374; 82435; 82565; 82803; 82947; 83605; 83735; 83880; 84075; 84132; 84155; 84295; 84450; 84460; 84484; 84520; 84703; 85025; 85610; 85730; 87040; 93005; 93306; 94002; 94003; 94640; 94770; 96361; 96365; 96368; 96375; 96376; 97161; 97162; 97165; 99285; C1758; J0131; J0330; J0696; J1650; J1940; J1956; J2060; J2250; J2270; J2550; J2704; J2930; J3475; J3480; J3490; J7030; J7040; J7050; J7060; J7512; J7613; J8597